=== PATIENT | male | born 1985 | race Caucasian/White ===

== ENCOUNTER 2022-08-19 17:46 | Emergency (ER) | payer OTHER ==
--- OUTSIDE RECORDS SUMMARY | 2022-08-19 17:56 | XMS REPORT | Continuity of Care Document ---
:1985 Author Organization [facility] t Address [address] [place] [address] Care Team Providers Name Role Phone Mark Cullen Primary Care Physician Rakesh Chavira Attending Clinician Unavailable ROSELYN WALLACE Attending Clinician Unavailable APRYL CASAS Attending Clinician Unavailable APRYL CASAS Attending Clinician Unavailable Doctor Unassigned, [place] Attending Clinician Unavailable Kirstie Casas Attending Clinician [phone] [email or web address] Attending Clinician Unavailable Hortencia Attending Clinician Unavailable [email or web address] Attending Clinician Unavailable Shaheen Farr Attending Clinician Quyen Garcia MD Attending Clinician SHAHEEN BUTTS Attending Clinician Unavailable Mary Attending Clinician Unavailable Only, Ang Db Test Attending Clinician Unavailable Provider, Ang [facility] Attending Clinician Unavailable Shannen Weir Attending Clinician SHANNEN JACKSON Attending Clinician Unavailable Lab, Adc Fam Pob I Attending Clinician Unavailable Zeina Nance Attending Clinician ZEINA KNOX Attending Clinician Unavailable Provider, [facility] Attending Clinician Unavailable Mary_PATIENCE Attending Clinician Unavailable Jorje Corbett Attending Clinician Leah Wallace Admitting Clinician Unavailable [email or web address] Admitting Clinician Unavailable Hortencia Admitting Clinician Unavailable [email or web address] Admitting Clinician Unavailable Mary Admitting Clinician Unavailable Brigitte Admitting Clinician Unavailable Jorje Corbett Admitting Clinician Payers Payer Name Policy Type Policy Number Effective Date Expiration Date S ource [facility] [id number] 2021 00:00:00 [facility] [id number] HUMANA () [facility] [id number] 2019 HUMANA 00:00:00 - PRIME () Problems Condition Condition Condition Status Onset Resolution Last Treating Co mments Source Name Details Category Date Date Treatment Clinician Date Lumbar Lumbar Problem Active [facility] spondylosi Spondylosi 6-20 Fa kirt s with s with 00:00: Practic myelopathy Myelopathy 00 e Prediabete Prediabete Problem Active [facility] s s 3-08 Family 00:00: Practic 00 e Depressive Depressive Problem Active [facility] disorder Disorder 1-11 Family 00:00: Practic 00 e Insomnia Insomnia Problem Active 2019-11 [place] 1-12 Family 00:00: Practic 00 e Dyslipidem Dyslipidem Problem Active [facility] illage ia ia 9-22 Family 00:00: Practic 00 e Eczema Eczema Problem Active [facility] 9-22 Family 00:00: Practic 00 e OSMIN, L5-S1 OSMIN, Diagnosis Active 2020-03-18 Memoria L5-S1 4 14:42:00 l Active 00:00: John 03/15/[address] [place] [address] John UNK UNK Diagnosis Active 2020-03-16 Mem oria Active 03-15 10:06:00 l 03/15/2020 00:00: [place] [address] John,[facility] Migraine Migraine Problem Active [place] 4-16 Family 00:00: Practic 00 e Lumbar Lumbar Problem Active 2020-0 Village radiculopa Radiculopa 4-16 Fa kirt thy thy 00:00: Practic 00 e Benign Benign Problem Active 2018-11 [place] essential Essential 0-11 Fami ly hypertensi Hypertensi 00:00: Pr actic on on 00 e ACUTE ACUTE Diagnosis Active 2019-07-30 Mem oria HEADACHE, HEADACHE, 07-20 16:40:00 l FEVER FEVER 00:00: John Active 00 07/20/2019 [facility] HEADACHE HEADACHE Diagnosis Active 2019-07-30 Memoria Active 07-20 16:40:00 l [facility] 00:[facility]: [place] 00 ABNORMAL ABNORMAL Diagnosis Active 2019-07-22 Memoria LEVELS OF LEVELS OF 08:07:00 l OTHER OTHER [place] SERUM SERUM ENZYMES ENZYMES Active [facility] ENCOUNTER Diagnosis Active 2019-07-22 Memoria FOR ENCOUNTER 08:07:00 l SCREENING FOR [place] FOR SCREENING MALIGNANT FOR NE MALIGNANT NE Active [facility] Encounter Problem 2019-07-24 Me moria for Encounter 22:48:41 l general for [place] adult general medical adult examinatio medical n without examinatio abnormal n without findings abnormal findings 07/24/2019 [facility] FEVER, FEVER, Diagnosis Active 2019-07-30 Me moria UNSPECIFIE UNSPECIFIE 16:40:00 l D D Active [facility] ENCNTR FOR ENCNTR Diagnosis Active 2019-07-22 Memoria GENERAL FOR 08:07:00 l ADULT GENERAL [place] MEDICAL ADULT EXAM W/ MEDICAL EXAM W/ Active [facility] No known No known Disease Unive rs active active ity of problems problems [facility] Allergies, Adverse Reactions, Alerts Allergy Allergy Status Severity Reaction(s) Onset Inactive Treating Comm ents Source Name Type Date Date Clinician No Known DA Active [facility] Allergie 3-16 [place] [facility] 00:[facility]: d [facility] NO KNOWN Drug Active Univers ALLERGIE Class ity of S [facility] Social History Social Habit Start Date Stop Date Quantity Comments Source History of Cigar Smoker [place] o f tobacco use [facility] Exposure to 2022-07-16 2022-07-26 Not sure University of SARS-CoV-2 00:00:00 19:26:00 [place] Medical (event) Branch Tobacco use and 2020-10-06 2020-10-06 User of smokeless Un iversity of exposure 00:00:00 00:00:00 tobacco [facility] Tobacco Comment 2020-10-06 2020-10-06 Occasional cigar Uni versity of 00:00:00 00:00:00 [facility] Sex Ass[birth year] Universit y of 00:00:00 00:00:00 [facility] Smoking Status Start Date Stop Date Source Current Some Day Smoker [facility] Light tobacco smoker 2020-10-06 00:00:00 Univers ity of [facility] Social History [facility] Medications Ordered Filled Start Stop Current Ordering Indication Dosage Frequency Signature Comments Components Source Medication Medication Date Date Medication? Clinician (SIG) Name Name cloNIDine 2021- No .2mg 0.2 mg, [facility] ers (CATAPRES) 07-27 Oral, ity of tablet 0.2 01:30: 00:41 ONCE, 1 [place] mg 00 :00 dose, On [facility] 07/26/22 Branch at 2030, CALLIE acetaminoph 2021- No 650mg 650 mg, U nivers en 07-27 Oral, ity of (TYLENOL) 00:42: 00:58 ONCE[place] 1 [place] tablet 650 00 :00 dose, On Medic al mg [facility] 07/26/22 Branch at 1945, CALLIE cloNIDine 2021- No .2mg 0.2 mg, [facility] ers (CATAPRES) 07-27 Oral, ity of tablet 0.2 00:37: 00:39 ONCE, 1 [place] mg 00 :00 dose, On [facility] 07/26/22 Branch at 1945, STAT predniSONE 2021- No 40mg 40 mg, [facility] ers (DELTASONE) 07-27 Oral, ity of tablet 40 00:30: 00:34 ONCE, 1 [place] mg 00 :00 dose, On [facility] 07/26/22 Branch at 1930, CALLIE hydroCHLORO 2021- No 25mg Take 25 mg Univers thiazide 25 07-26 by mouth ity of mg tablet 20:12: 00:00 daily. [place] 29 :00 [facility] lisinopriL 2021- No 20mg Take 20 mg Univers 20 mg 9-08 09-08 by mouth ity of tablet 20:11: 00:00 daily. [place] 56 :00 Medical Branch cloNIDine 2021-0 Yes [id number] .2mg Take 1 Un slade 0.2 mg 9-08 tablet by ity of tablet 00:00: mouth in [place] 00 the Medical morning Branch and 1 tablet in the evening. predniSONE 2021-0 2021- Yes [id number] Take 4 Univers 10 mg 9-08 09-20 tablets by ity of tablet 00:00: 04:59 mouth [place] 00 :00 daily for Medical 5 days, Branch THEN 2 tablets daily for 3 days, THEN 1 tablet daily for 3 days. sertraline sertraline No sertraline [facility] 100 mg 100 mg 6-20 100 mg Family tablet tablet 00:00: tablet Practic 00 e triamcinolo Yes [id number] Apply to [facility] 4-19 area(s) 2 ity of acetonide 00:00: (two) [place] 0.1 % 00 times Medical ointment daily. Branch methylPREDN 0 Yes Take by [facility] 4 4-19 mouth ity of mg tablets 00:00: SEE-INSTRU [place] 00 CTIONS. Medical follow Branch package directions triamcinolo 0 Yes Apply to [facility] 4-19 area(s) 2 ity of acetonide 00:00: (two) [place] 0.1 % 00 times Medical ointment daily. Branch methylPREDN 0 Yes Take by [facility] 4 4-19 mouth ity of mg tablets 00:00: SEE-INSTRU [place] 00 CTIONS. Medical follow Branch package directions triamcinolo 0 2021- No [id number] Apply to [facility] 4-19 -08 area(s) 2 ity of acetonide 00:00: 00:00 (two) [place] 0.1 % 00 :00 times Medical ointment daily. Branch methylPREDN 2021-0 2021- No [id number] Take by [facility] 4 4-19 -08 mouth ity of mg tablets 00:00: 00:00 SEE-INSTRU [place] 00 :00 CTIONS. Medical follow Branch package directions dexamethaso 2020-11- No [id number] 8mg [facility] ne 0-25 10-25 ity of (DECADRON 02:45: 01:40 [place] PHOSPHATE) 00 :00 Medical injection 8 Branch mg dexamethaso 2020-11- No 8mg 8 mg, Univers ne 0-25 10-25 Intramuscu ity of (DECADRON 02:45: 01:40 lar, ONCE, [place] PHOSPHATE) 00 :00 1 dose, On Med ical injection 8 Sun Branch mg 09/10/21 at 2145, Routine clotrimazol 2020-11- No Apply to U nivers e-betametha 0-24 10-24 area(s) 2 it y of sone cream 19:49: 00:00 (two) [place] 52 :00 times Medical daily. Branch mupirocin 2 2020-11 Apply to U nivers % ointment 0-24 10-24 area(s) 3 ity of 19:49: 00:00 (three) [place] 37 :00 times Medical daily. Branch triamcinolo 2020-11 Apply to U nivers ne 0-24 10-24 area(s) 2 ity of acetonide 19:49: 00:00 (two) [place] 0.1 % cream 31 :00 times Medical daily. Branch methylPREDN 2020-11 Yes Take by Univers ISolone 0-24 mouth ity of (MEDROL, 00:00: SEE-INSTRU [place] CHI,) 4 mg 00 CTIONS. Medica l tablets follow Branch package directions triamcinolo 2020-11 Yes Apply to Univers ne 0-24 area(s) 2 ity of acetonide 00:00: (two) [place] 0.1 % 00 times Medical ointment daily. Branch methylPREDN 2020-11 Yes Take by Univers ISolone 0-24 mouth ity of (MEDROL, 00:00: SEE-INSTRU [place] CHI,) 4 mg 00 CTIONS. Medica l tablets follow Branch package directions triamcinolo 2020-11 Yes Apply to Univers ne 0-24 area(s) 2 ity of acetonide 00:00: (two) [place] 0.1 % 00 times Medical ointment daily. Branch methylPREDN 2020-11 Yes [id number] Take by Univers ISolone 0-24 mouth ity of (MEDROL, 00:00: SEE-INSTRU [place] CHI,) 4 mg 00 CTIONS. Medica l tablets follow Branch package directions triamcinolo 2020-11 Yes Apply to Univers ne 0-24 area(s) 2 ity of acetonide 00:00: (two) [place] 0.1 % 00 times Medical ointment daily. Branch methylPREDN 2020-11- No [id number] Take by Univers ISolone 0-24 04-19 mouth ity of (MEDROL, 00:00: 00:00 [place]-INSTRU [place] CHI,) 4 mg 00 :00 CTIONS. Medica l tablets follow Branch package directions triamcinolo 2020-11- No [id number] Apply to [facility] ne 0-24 04-19 area(s) 2 ity of acetonide 00:00: 00:00 (two) [place] 0.1 % 00 :00 times Medical ointment daily. Branch amitriptyli 2019-11 Yes 25mg Take 25 mg Univers ne 25 mg 1-19 by mouth ity of tablet 20:08: at [place] [address] bedtime. Medical Branch mupirocin 2 2019-11 Yes Apply to Un slade % ointment 1-19 area(s) 3 ity of 20:08: (three) [place] 08 times Medical daily. Branch hydroCHLORO 2019-11 Yes 25mg Take 25 mg Univers thiazide 25 1-19 by mouth ity of mg tablet 20:08: daily. [place] [address] Medical Branch clotrimazol 2019-11 Yes Apply to Un sl[place] e-betametha 1-19 area(s) 2 ity of sone cream 20:08: (two) [place] 08 times Medical daily. Branch SERTraline 2019-11 Yes 50mg Take 50 mg U nivers 50 mg 1-19 by mouth ity of tablet 20:08: daily. [place] [address] Medical Branch ibuprofen 2019- Yes 600mg Take 600 Uni vers 600 mg 1-19 mg by ity of tablet 20:08: mouth [place] 08 every 6 Medical (six) Branch hours as needed. triamcinolo 2019-11 Yes Apply to Un [place] ne 1-19 area(s) 2 ity of acetonide 20:08: (two) [place] 0.1 % cream 08 times Medical daily. Branch lisinopriL 2019-11 Yes 20mg Take 20 mg U nivers 20 mg 1-19 by mouth ity of tablet 20:08: daily. [place] [address] Medical Branch amitriptyli 2019-11 Yes 25mg Take 25 mg Univers ne 25 mg 1-19 by mouth ity of tablet 20:08: at [place] 08 bedtime. Medical Branch mupirocin 2 2019-11 Yes Apply to Un slade % ointment 1-19 area(s) 3 ity of 20:08: (three) [place] 08 times Medical daily. Branch hydroCHLORO 2019- Yes 25mg Take 25 mg Univers thiazide 25 1-19 by mouth ity of mg tablet 20:08: daily. [place] [address] Medical Branch clotrimazol 2019-11 Yes Apply to Un [place] e-betametha 1-19 area(s) 2 ity of sone cream 20:08: (two) [place] 08 times Medical daily. Branch SERTraline 2019-11 Yes 50mg Take 50 mg U nivers 50 mg 1-19 by mouth ity of tablet 20:08: daily. [place] [address] Medical Branch ibuprofen 2019- Yes 600mg Take 600 Uni vers 600 mg 1-19 mg by ity of tablet 20:08: mouth [place] [address] every 6 Medical (six) Branch hours as needed. triamcinolo 2019-11 Yes Apply to Un sl[place] ne 1-19 area(s) 2 ity of acetonide 20:08: (two) [place] 0.1 % cream 08 times Medical daily. Branch lisinopriL 2019-11 Yes 20mg Take 20 mg U nivers 20 mg 1-19 by mouth ity of tablet 20:08: daily. [place] [address] Medical Branch amitriptyli 2019-11 Yes 25mg Take 25 mg Univers ne 25 mg 1-19 by mouth ity of tablet 20:08: at [place] 08 bedtime. Medical Branch mupirocin 2 2019-11 Yes Apply to Un slade % ointment 1-19 area(s) 3 ity of 20:08: (three) [place] 08 times Medical daily. Branch hydroCHLORO 2019- Yes 25mg Take 25 mg Univers thiazide 25 1-19 by mouth ity of mg tablet 20:08: daily. [place] [address] Medical Branch clotrimazol 2019-11 Yes Apply to Un [place] e-betametha 1-19 area(s) 2 ity of sone cream 20:08: (two) [place] 08 times Medical daily. Branch SERTraline 2019-11 Yes 50mg Take 50 mg U nivers 50 mg 1-19 by mouth ity of tablet 20:08: daily. [place] [address] Medical Branch ibuprofen 2019- Yes 600mg Take 600 Uni vers 600 mg 1-19 mg by ity of tablet 20:08: mouth [place] 08 every 6 Medical (six) Branch hours as needed. triamcinolo 2019-11 Yes Apply to Un sl[place] ne 1-19 area(s) 2 ity of acetonide 20:08: (two) [place] 0.1 % cream 08 times Medical daily. Branch lisinopriL 2019-11 Yes 20mg Take 20 mg U nivers 20 mg 1-19 by mouth ity of tablet 20:08: daily. [place] [address] Medical Branch amitriptyli 2019- Yes 25mg Take 25 mg Univers ne 25 mg 1-19 by mouth ity of tablet 14:08: at [place] [address] bedtime. Medical Branch hydroCHLORO 2019- Yes 25mg Take 25 mg Univers thiazide 25 1-19 by mouth ity of mg tablet 14:08: daily. [place] [address] Medical Branch SERTraline 2019-11 Yes 50mg Take 50 mg U nivers 50 mg 1-19 by mouth ity of tablet 14:08: daily. [place] [address] Medical Branch ibuprofen 2019- Yes 600mg Take 600 Uni vers 600 mg 1-19 mg by ity of tablet 14:08: mouth [place] [address] every 6 Medical (six) Branch hours as needed. lisinopriL 2019-11 Yes 20mg Take 20 mg U nivers 20 mg 1-19 by mouth ity of tablet 14:08: daily. [place] [address] Medical Branch amitriptyli 2019- Yes 25mg Take 25 mg Univers ne 25 mg 1-19 by mouth ity of tablet 14:08: at [place] [address] bedtime. Medical Branch hydroCHLORO 2020- Yes 25mg Take 25 mg Univers thiazide 25 1-19 by mouth ity of mg tablet 14:08: daily. [place] [address] Medical Branch SERTraline 2019- Yes 50mg Take 50 mg U nivers 50 mg 1-19 by mouth ity of tablet 14:08: daily. [place] [address] Medical Branch ibuprofen 2019- Yes 600mg Take 600 Uni vers 600 mg 1-19 mg by ity of tablet 14:08: mouth [place] 08 every 6 Medical (six) Branch hours as needed. lisinopriL 2020- Yes 20mg Take 20 mg U nivers 20 mg 1-19 by mouth ity of tablet 14:08: daily. [place] [address] Medical Branch amitriptyli 2020- Yes 25mg Take 25 mg Univers ne 25 mg 1-19 by mouth ity of tablet 14:08: at [place] 08 bedtime. Medical Branch hydroCHLORO 2020- Yes 25mg Take 25 mg Univers thiazide 25 1-19 by mouth ity of mg tablet 14:08: daily. [place] [address] Medical Branch SERTraline 2020- Yes 50mg Take 50 mg U nivers 50 mg 1-19 by mouth ity of tablet 14:08: daily. [place] [address] Medical Branch ibuprofen 2020- Yes 600mg Take 600 Uni vers 600 mg 1-19 mg by ity of tablet 14:08: mouth [place] 08 every 6 Medical (six) Branch hours as needed. lisinopriL 2019- Yes 20mg Take 20 mg U nivers 20 mg 1-19 by mouth ity of tablet 14:08: daily. [place] [address] Medical Branch amitriptyli 2020- Yes 25mg Take 25 mg Univers ne 25 mg 1-19 by mouth ity of tablet 14:08: at [place] [address] bedtime. Medical Branch hydroCHLORO 2020-1 Yes 25mg Take 25 mg Univers thiazide 25 1-19 by mouth ity of mg tablet 14:08: daily. [place] [address] Medical Branch SERTraline 2019- Yes 50mg Take 50 mg U nivers 50 mg 1-19 by mouth ity of tablet 14:08: daily. [place] [address] Medical Branch ibuprofen 2020-1 Yes 600mg Take 600 Uni vers 600 mg 1-19 mg by ity of tablet 14:08: mouth [place] 08 every 6 Medical (six) Branch hours as needed. lisinopriL 2020- Yes 20mg Take 20 mg U nivers 20 mg 1-19 by mouth ity of tablet 14:08: daily. [place] [address] Medical Branch amitriptyli 2020- Yes 25mg Take 25 mg Univers ne 25 mg 1-19 by mouth ity of tablet 14:08: at [place] 08 bedtime. Medical Branch SERTraline 2020- Yes 50mg Take 50 mg U nivers 50 mg 1-19 by mouth ity of tablet 14:08: daily. [place] [address] Medical Branch ibuprofen 2019- Yes 600mg Take 600 Uni vers 600 mg 1-19 mg by ity of tablet 14:08: mouth [place] 08 every 6 Medical (six) Branch hours as needed. amitriptyli 2019-11 Yes 25mg Take 25 mg Univers ne 25 mg 1-19 by mouth ity of tablet 14:08: at [place] 08 bedtime. Medical Branch hydroCHLORO 2019-11 Yes 25mg Take 25 mg Univers thiazide 25 1-19 by mouth ity of mg tablet 14:08: daily. [place] [address] Medical Branch SERTraline 2019- Yes 50mg Take 50 mg U nivers 50 mg 1-19 by mouth ity of tablet 14:08: daily. [place] [address] Medical Branch ibuprofen 2019-11 Yes 600mg Take 600 Uni vers 600 mg 1-19 mg by ity of tablet 14:08: mouth [place] 08 every 6 Medical (six) Branch hours as needed. lisinopriL 2019-11 Yes 20mg Take 20 mg U nivers 20 mg 1-19 by mouth ity of tablet 14:08: daily. [place] [address] Medical Branch benzonatate 2019-11 Yes [id number] 100mg Take 1 Univers (TESSALON 1-19 capsule by ity of PERLES) 100 00:00: mouth 3 [place] mg capsule 00 (three) Medica l times [place] daily. loratadine 2019-11 Yes [id number] 10mg Take 1 U nivers 10 mg 1-19 tablet by ity of tablet 00:00: mouth [place] 00 daily. Medical Branch fluticasone 2019-11 Yes [id number] 2{spray Use 2 Univers propionate 1-19 } Sprays in ity of 50 00:00: each [place] mcg/actuati 00 nostril Medic al on nasal daily. Branch spray benzonatate 2019-11 Yes [id number] 100mg Take 1 Univers (TESSALON 1-19 capsule by ity of PERLES) 100 00:00: mouth 3 [place] mg capsule 00 (three) Medica l times [place] daily. loratadine 2019-11 Yes [id number] 10mg Take 1 U nivers 10 mg 1-19 tablet by ity of tablet 00:00: mouth [place] 00 daily. Medical Branch fluticasone 2019-11 Yes [id number] 2{spray Use 2 Univers propionate 1-19 } Sprays in ity of 50 00:00: each [place] mcg/actuati 00 nostril Medic al on nasal daily. [place] spray benzonatate 2019-11 Yes [id number] 100mg Take 1 Univers (TESSALON 1-19 capsule by ity of PERLES) 100 00:00: mouth 3 [place] mg capsule 00 (three) Medica l times Branch daily. loratadine 2019-11 Yes [id number] 10mg Take 1 U nivers 10 mg 1-19 tablet by ity of tablet 00:00: mouth [place] 00 daily. [facility] fluticasone 2019-11 Yes [id number] 2{spray Use 2 Univers propionate 1-19 } Sprays in ity of 50 00:00: each [place] mcg/actuati 00 nostril Medic al on nasal daily. [place] spray benzonatate 2019-11- No [id number] 100mg Take 1 Univers (TESSALON 1-19 10-24 capsule by ity of JUAN) 100 00:00: 00:00 mouth 3 [place] mg capsule 00 :00 (three) Medica l times [place] daily. loratadine 2019-11- No [id number] 10mg Take 1 Univers 10 mg 1-19 10-24 tablet by ity of tablet 00:00: 00:00 mouth [place] 00 :00 daily. [facility] fluticasone 2019-11- No [id number] 2{spray Use 2 Univers propionate 1-19 10-24 } Sprays in ity of 50 00:00: 00:00 each [place] mcg/actuati 00 :00 nostril Medic al on nasal daily. [place] spray Acetaminoph Yes 1 tab, PO, Memoria en 325 MG / 9-04 Q4H, PRN l butalbital 21:51: Headache Her ramírez 50 MG / 00 1-5, X 3 Caffeine 40 day, # 12 MG Oral tab, 0 Tablet Refill(s), Pharmacy: [place] [id number] Acetaminoph Yes 1 tab, PO, Memoria en 325 MG / 9-04 Q4H, PRN l butalbital 21:51: Headache Her ramírez 50 MG / 00 1-5, X 3 Caffeine 40 day, # 12 MG Oral tab, 0 Tablet Refill(s), Pharmacy: [place] [id number] Ibuprofen No 625, PO, Trae matti 9-04 Q8H, PRN l 20:49: Pain Score [place] 00 4-6, 0 Refill(s) Ibuprofen 0 No 625, PO, [place] 07-22 Q8H, PRN l 20:49: Pain Score [place] 00 4-6, 0 Refill(s) APAP/butalb No Notes: [place] ital/caffei 07-22 (acetamino l ne 19:27: phen-butal [place] 00 bital-caff eine 325-50-40m g) Do not exceed 4 gm/day of acetaminop hen. (Same as: [place], Fioricet) APAP/butalb No Notes: [place] ital/caffei 07-22 (acetamino l ne 19:27: phen-butal [place] 00 bital-caff eine 325-50-40m g) Do not exceed 4 gm/day of acetaminop hen. (Same as: [place], Fioricet) Aspirin 325 0 No 1 cap, Trae matti MG / 07-22 Route: PO, l butalbital 19:07: Drug Form: H ermann 50 MG / 00 CAP, Caffeine 40 Dosing MG Oral Weight Capsule 120.17, [Fiorinal] kg, Q4H, PRN Headache 1-5, NOW, Start date: 07/22/19 14:07:00 CDT, Duration: 30 day, Stop date: 08/21/19 14:06:00 CDT Aspirin 325 0 No 1 cap, Trae matti MG / 07-22 Route: PO, l butalbital 19:07: Drug Form: H ermann 50 MG / 00 CAP, Caffeine 40 Dosing MG Oral Weight Capsule 120.17, [Fiorinal] kg, Q4H, PRN Headache 1-5, NOW, Start date: 07/22/19 14:07:00 CDT, Duration: 30 day, Stop date: 08/21/19 14:06:00 CDT Dilaudid 0 No Notes: Memoria 07-22 Same as: l 14:30: Dilaudid [place] 00 Dilaudid No Notes: Memoria 07-22 Same as: l 14:30: Dilaudid [place] vancomycin 0 No 2001 mg: Me moria + Sodium 9-04 infuse l Chloride 09:00: over 2.5 Kerri nn 0.9% IV 250 00 hours For mL adult patients only: Round to nearest 250 mg per Medical Staff approval MEDICATION WASTE Product Size: 1000 mg Product Wasted: ___ mg vancomycin 2019-0 No 2000 mg: Me moria + Sodium 07-22 infuse l Chloride 09:00: over 2.5 Kerri nn 0.9% IV 250 00 hours For mL adult patients only: Round to nearest 250 mg per Medical Staff approval MEDICATION WASTE Product Size: 1000 mg Product Wasted: ___ mg vancomycin 2019- No 2000 mg: Me moria 07-21 infuse l 23:00: over 2.5 [place] 00 hours For adult patients only: Round to nearest 250 mg per Medical Staff approval MEDICATION WASTE Product Size: 1000 mg Product Wasted: ___ mg vancomycin 2018- No 2000 mg: Me moria 07-21 infuse l 23:00: over 2.5 John 00 hours For adult patients only: Round to nearest 250 mg per Medical Staff approval MEDICATION WASTE Product Size: 1000 mg Product Wasted: ___ mg ketOROLAC 2019-0 No 4 days Memor ia 30 mg/mL 07-21 l injectable 14:57: MEDICATION H ermann solution 00 WASTE Product Size: 30 mg Product Wasted: ___ mg Dexamethaso 2018- No Notes: Trae matti ne 07-21 Concentrat l 14:57: ion: [place] 00 4mg/ml Dilaudid No Notes: Memoria 07-21 Same as: l 14:57: Dilaudid [place] 00 Phenergan 2018- No Notes: Do Mem oria 07-21 not give l 14:57: IV push. [place] 00 (Same as: Phenergan) ketOROLAC 2019-0 No 4 days Memor ia 30 mg/mL 07-21 l injectable 14:57: MEDICATION H ermann solution 00 WASTE Product Size: 30 mg Product Wasted: ___ mg Dexamethaso No Notes: Trae matti ne 07-21 Concentrat l 14:57: ion: [place] 00 4mg/ml Dilaudid No Notes: Memoria 07-21 Same as: l 14:57: Dilaudid Phenergan No Notes: Do Mem oria 07-21 not give l 14:57: IV push. (Same as: Phenergan) Saline No Notes: Memoria Flush 0.9% 07-21 (Same as: l 14:00: BD [place] 00 Posiflush) Saline No Notes: Memoria Flush 0.9% 07-21 (Same as: l 14:00: BD [place] Posiflush) Lactated No 1,000 mL, Trae matti Ringers IV 07-21 Rate: 125 l 1,000 mL 12:55: ml/hr, Infuse over: 8 hr, Route: IV, Dosing Weight 120.17 kg, Total Volume: 1,000, Start date: 07/21/19 7:55:00 CDT, Duration: 30 day, Stop date: 08/20/19 7:54:00 CDT, 2.48, m2, 0 Lactated No 1,000 mL, Trae matti [place] IV 07-21 Rate: 125 l 1,000 mL 12:55: ml/hr, Infuse over: 8 hr, Route: IV, Dosing Weight 120.17 kg, Total Volume: 1,000, Start date: 07/21/19 7:55:00 CDT, Duration: 30 day, Stop date: 08/20/19 7:54:00 CDT, 2.48, m2, 0 Ceftriaxone No Notes: Trae matti 07-21 (Same As: l 11:00: Rocephin). MEDICATION WASTE Product Size: 2000 mg Product Wasted: ___ mg Vancomycin No 2001 mg: Me moria 07-21 infuse l 11:00: over 2.5 hours For adult patients only: Round to nearest 250 mg per Medical Staff approval MEDICATION WASTE Product Size: 1000 mg Product Wasted: ___ mg Acyclovir No Notes: Memori a 07-21 (Same as: l 11:00: Zovirax) For adult patients only: Round to nearest 50 mg per Medical Staff approval MEDICATION WASTE Product Size: 500 mg Product Wasted: ___ mg Ceftriaxone 2018-0 No Notes: Trae matti 07-21 (Same As: l 11:00: Rocephin). John MEDICATION WASTE Product Size: 2000 mg Product Wasted: ___ mg Vancomycin 2018-0 No 2001 mg: Me moria 07-21 infuse l 11:00: over 2.5 [place] 00 hours For adult patients only: Round to nearest 250 mg per Medical Staff approval MEDICATION WASTE Product Size: 1000 mg Product Wasted: ___ mg Acyclovir 2018- No Notes: Memori a 07-21 (Same as: l 11:00: Zovirax) John 00 For adult patients only: Round to nearest 50 mg per Medical Staff approval MEDICATION WASTE Product Size: 500 mg Product Wasted: ___ mg Saline No Notes: Memoria Flush 0.9% 07-21 (Same as: l 10:59: BD John 00 Posiflush) Saline No Notes: Memoria Flush 0.9% 07-21 (Same as: l 10:59: BD [place] 00 Posiflush) Lidocaine Yes Notes: Memori a Hydrochlori 07-21 Preservati l de 10 MG/ML 06:57: ve free. He rmann Injectable 00 (Same as: Solution Xylocaine MPF) Lidocaine Yes Notes: Memori a Hydrochlori 07-21 Preservati l de 10 MG/ML 06:57: ve free. He rmann Injectable 00 (Same as: Solution Xylocaine MPF) Vancomycin 0 No 2001 mg: Me moria 07-21 infuse l 04:47: over 2.5 [place] 00 hours For adult patients only: Round to nearest 250 mg per Medical Staff approval MEDICATION WASTE Product Size: 1000 mg Product Wasted: ___ mg cefepime 2018-0 No Notes: Memoria 07-21 (Same as: l 04:47: Maxipime) John 00 MEDICATION WASTE Product Size: 2000 mg Product Wasted: ___ mg Vancomycin 2019-0 No 2001 mg: Me moria 07-21 infuse l 04:47: over 2.5 [place] 00 hours For adult patients only: Round to nearest 250 mg per Medical Staff approval MEDICATION WASTE Product Size: 1000 mg Product Wasted: ___ mg cefepime No Notes: Memoria 07-21 (Same as: l 04:47: Maxipime) John 00 MEDICATION WASTE Product Size: 2000 mg Product Wasted: ___ mg Dexamethaso No 10 mg, 2.5 Memoria ne 9-03 mL, Route: l 04:46: IVP, Drug [place] form: INJ, ONCE, Dosing Weight 119, kg, Priority: STAT, Start date: 07/20/19 23:46:00 CDT, Stop date: 07/20/19 23:46:00 CDT, 0 Reglan No Notes: Memoria 07-21 (Same as: l 04:46: Reglan) Benadryl No Notes: Memoria 07-21 (Same as: l 04:46: Benadryl) Dexamethaso No 10 mg, 2.5 Memoria ne 9-03 mL, Route: l 04:46: IVP, Drug form: INJ, ONCE, Dosing Weight 119, kg, Priority: STAT, Start date: 07/20/19 23:46:00 CDT, Stop date: 07/20/19 23:46:00 CDT, 0 Reglan No Notes: Memoria 07-21 (Same as: l 04:46: Reglan) John Benadryl No Notes: Memoria 07-21 (Same as: l 04:46: Benadryl) Ojhn Sodium No 1,000 mL, Memori a Chloride 07-21 1000 l 0.9% 02:27: ml/hr, [place] (Bolus) IV 00 Infuse Over: 1 hr, Route: IV, 1,000, Drug form: INJ, ONCE, Priority: STAT, Dosing Weight 119 kg, Start date: 07/20/19 21:27:00 CDT, Stop date: 07/20/19 21:27:00 CDT, 0 Sodium 2019-0 No 1,000 mL, Memori a Chloride 07-21 1000 l 0.9% 02:27: ml/hr, John (Bolus) IV 00 Infuse Over: 1 hr, Route: IV, 1,000, Drug form: INJ, ONCE, Priority: STAT, Dosing Weight 119 kg, Start date: 07/20/19 21:27:00 CDT, Stop date: 07/20/19 21:27:00 CDT, 0 Tylenol 2019-0 No 1,000 mg, Memor ia 07-21 Route: PO, l 02:11: ONCE, Dosing Weight 119, kg, Start date: 07/20/19 21:11:00 CDT, Stop date: 07/20/19 21:11:00 CDT Tylenol 2019-0 No 1,000 mg, Memor ia 07-21 Route: PO, l 02:11: ONCE, Dosing Weight 119, kg, Start date: 07/20/19 21:11:00 CDT, Stop date: 07/20/19 21:11:00 CDT amitriptyli amitriptyli No amitriptyl [facility] ne 25 mg ne 25 mg ine 25 mg Fa kirt tablet Take tablet Take tablet Practic 1 tablet as 1 tablet as Take 1 e needed by needed by tablet as oral route oral route needed by at bedtime. at bedtime. oral route at bedtime. atenolol 50 atenolol 50 No atenolol [facility] mg tablet 1 mg tablet 1 50 mg Family tab qd tab qd tablet 1 Practic tab qd e ergocalcife ergocalcife No ergocalcif [facility] ashley ramirez ashlie Family (vitamin (vitamin (vitamin Pra ctic D2) 1,250 D2) 1,250 D2) 1,250 e mcg (50,000 mcg (50,000 mcg unit) unit) (50,000 capsule 1 capsule 1 unit) PO WEEKLY PO WEEKLY capsule 1 PO WEEKLY irbesartan irbesartan No irbesartan [facility] 300 300 300 Family mg-hydrochl mg-hydrochl mg-hydroch Practic orothiazide orothiazide lorothiazi e 12.5 mg 12.5 mg de 12.5 mg tablet Take tablet Take tablet 1 tablet 1 tablet Take 1 every day every day tablet by oral by oral every day route. route. by oral route. Immunizations Ordered Filled Immunization Date Status Comments [facility] e Immunization Name Name SARS-COV-2 COVID-19 2021-05-12 Completed Unive rsity of MODERNA VACCINE 00:00:00 [facility] ical Branch SARS-COV-2 COVID-19 2021-05-12 Completed Unive rsity of MODERNA VACCINE 00:00:00 [facility] ical Branch SARS-COV-2 COVID-19 2021-05-12 Completed Unive rsity of MODERNA 12+ YRS 00:00:00 [facility] ical VACCINE Branch SARS-COV-2 COVID-19 2021-05-12 Completed Unive rsity of MODERNA 12+ YRS 00:00:00 [facility] ical VACCINE Branch COVID-19, mRNA, COVID-19, mRNA, 2021-05-12 Completed [facility] Family LNP-S, PF, 100 LNP-S, PF, 100 00:00:00 Practi ce mcg/0.5 mL dose mcg/0.5 mL dose (Moderna) (Moderna) SARS-COV-2 COVID-19 2021-04-14 Completed Unive rsity of MODERNA VACCINE 00:00:00 [facility] ical Branch SARS-COV-2 COVID-19 2021-04-14 Completed Unive rsity of MODERNA VACCINE 00:00:00 [facility] ical Branch SARS-COV-2 COVID-19 2021-04-14 Completed Unive rsity of MODERNA 12+ YRS 00:00:00 [facility] ical VACCINE Branch SARS-COV-2 COVID-19 2021-04-14 Completed Unive rsity of MODERNA 12+ YRS 00:00:00 [facility] ical VACCINE Branch COVID-19, mRNA, COVID-19, mRNA, 2021-04-11 Completed Vill age Family LNP-S, PF, 100 LNP-S, PF, 100 00:00:00 Practi ce mcg/0.5 mL dose mcg/0.5 mL dose (Moderna) (Moderna) SARS-COV-2 COVID-19 2021-03-07 Completed Unive rsity of MODERNA VACCINE 00:00:00 [facility] ical Branch SARS-COV-2 COVID-19 2021-03-07 Completed Unive rsity of MODERNA VACCINE 00:00:00 [facility] ica Branch SARS-COV-2 COVID-19 2021-03-07 Completed Unive rsity of MODERNA 12+ YRS 00:00:00 [place] [facility] VACCINE [facility] SARS-COV-2 COVID-19 2021-03-07 Completed Unive rsity of MODERNA 12+ YRS 00:00:00 [facility] ica VACCINE Branch Influenza Virus 2020-08-18 Completed Universit y of Vaccine Quad IM 00:00:00 [place] [facility] Multi-dose 6+ MO Branch Influenza Virus 2020-08-18 Completed Universit y of Vaccine Quad IM 00:00:00 [place] [facility] Multi-dose 6+ MO Branch Influenza Virus 2020-08-18 Completed Universit y of Vaccine Quad IM 00:00:00 [place] [facility] Multi-dose 6+ MO Branch Influenza Virus 2020-08-18 Completed Universit y of Vaccine Quad IM 00:00:00 [place] [facility] Multi-dose 6+ MO Branch Influenza Virus 2020-08-18 Completed Universit y of Vaccine Quad IM 00:00:00 [place] [facility] Multi-dose 6+ MO Branch Influenza Virus 2020-08-18 Completed Universit y of Vaccine Quad IM 00:00:00 [place] [facility] Multi-dose 6+ MO Branch Influenza Virus 2020-08-18 Completed Universit y of Vaccine Quad IM 00:00:00 [place] [facility] Multi-dose 6+ MO Branch Influenza Virus 2020-08-18 Completed Universit y of Vaccine Quad IM 00:00:00 [place] [facility] Multi-dose 6+ MO Branch Influenza Virus 2020-08-18 Completed Universit y of Vaccine Quad IM 00:00:00 [facility] ical Multi-dose 6+ MO Branch influenza, influenza, 2020-08-18 Completed [place] injectable, injectable, 00:00:00 Practice quadrivalent quadrivalent TDAP 2016-11-18 Completed University of 00:00:00 [facility] TDAP 2016-11-18 Completed University of 00:00:00 [facility] TDAP 2016-11-18 Completed University of 00:00:00 [facility] TDAP 2016-11-18 Completed University of 00:00:00 [facility] TDAP 2016-11-18 Completed University of 00:00:00 [facility] TDAP 2016-11-18 Completed University of 00:00:00 [facility] TDAP 2016-11-18 Completed University of 00:00:00 [facility] TDAP 2016-11-18 Completed University 00:00:00 [facility] TDAP 2016-11-18 Completed [facility] 00:00:00 [facility] Tdap Tdap 2016-11-18 Completed [place] 00:00:00 Practice Vital Signs Vital Name Observation Time Observation Value Comments Source Systolic blood 2022-07-27 01:27:00 155 mm[Hg] Univer sity of pressure [facility] Diastolic blood 2022-07-27 01:27:00 96 mm[Hg] Unive rsity of pressure [facility] Heart rate 2022-07-27 01:27:00 89 /min Universi ty of [facility] Respiratory rate 2022-07-27 01:27:00 18 /min Univ [facility] Oxygen saturation in 2022-07-27 01:27:00 97 /min [facility] Arterial blood by [facility] Pulse oximetry Branch Body temperature 2022-07-27 00:28:00 37.56 [facility] [facility] height 2022-07-27 00:28:00 180.3 cm Universi ty [facility] Body weight 2022-07-27 00:28:00 [facility] 2022-07-27 00:28:00 32.08 kg/m2 [facility] Height 2022-05-07 00:00:00 71.5 [in_i] [place] Practice BMI (Body Mass 2022-05-07 00:00:00 40.4 kg/m2 [facility]) Practice Body Weight 2022-05-07 00:00:00 294 [lb_av] [place] [facility] Systolic blood 2022-03-06 17:03:00 161 mm[Hg] Univer sity of pressure [facility] Diastolic blood 2022-03-06 17:03:00 101 mm[Hg] Unive rsity of pressure [facility] Heart rate 2022-03-06 17:00:00 54 /min Universi ty [facility] Body temperature 2022-03-06 17:00:00 36.44 Saloni Univ ersity of [facility] Respiratory rate 2022-03-06 17:00:00 18 /min Univ ersity of [facility] Body height 2022-03-06 17:00:00 180.3 cm Universi ty [facility] Body weight 2022-03-06 17:00:00 133.811 kg Universi [facility] BMI 2022-03-06 17:00:00 41.14 kg/m2 [facility] Oxygen saturation in 2022-03-06 17:00:00 97 /min University Arterial blood by [facility] Pulse oximetry Branch Height 2022-02-19 00:00:00 71.5 [in_i] [facility] BMI (Body Mass 2022-02-19 00:00:00 40.6 kg/m2 [facility] Body Weight 2022-02-19 00:00:00 295 [lb_av] [facility] BP Diastolic 2022-01-10 00:00:00 82 mm[Hg] [facility] Height 2022-01-10 00:00:00 71.5 [in_i] [facility] BMI (Body Mass 2022-01-10 00:00:00 41.1 kg/m2 [facility] BP Systolic 2022-01-10 00:00:00 138 mm[Hg] [facility] Body Weight 2022-01-10 00:00:00 299 [lb_av] [facility] BP Diastolic 2022-01-04 00:00:00 80 mm[Hg] [facility] Height 2022-01-04 00:00:00 71.5 [in_i] [facility] BMI (Body Mass 2022-01-04 00:00:00 39.3 kg/m2 [facility] BP Systolic 2022-01-04 00:00:00 130 mm[Hg] [facility] Body Weight 2022-01-04 00:00:00 286 [lb_av] [facility] BP Diastolic 2021-09-11 00:00:00 90 mm[Hg] [facility] Height 2021-09-11 00:00:00 71.5 [in_i] [facility] BMI (Body Mass 2021-09-11 00:00:00 39.7 kg/m2 [facility] BP Systolic 2021-09-11 00:00:00 138 mm[Hg] [facility] Body Weight 2021-09-11 00:00:00 288.8 [lb_av] [facility] Systolic blood 2021-09-11 00:40:00 165 mm[Hg] Univer sity of pressure [facility] Diastolic blood 2021-09-11 00:40:00 109 mm[Hg] Unive rsity of [facility] Body weight 2021-09-11 00:39:00 132.405 kg Universi ty [facility] BMI 2021-09-11 00:39:00 40.71 kg/m2 Universi [facility] Oxygen saturation in 2021-09-11 00:39:00 98 /min [facility] Arterial blood by [facility] Pulse oximetry Branch Heart rate 2021-09-11 00:39:00 88 /min [facility] Respiratory rate 2021-09-11 00:39:00 20 /min [facility] 2021-09-11 00:39:00 180.3 [facility] Height 2021-04-22 00:00:00 71.5 [in_i] [facility] Height 2021-02-20 00:00:00 71.5 [in_i] [facility] BMI (Body Mass 2021-02-20 00:00:00 40.3 kg/m2 [facility] Body Weight 2021-02-20 00:00:00 293 [lb_av] [facility] BP Diastolic 2020-11-28 00:00:00 115 mm[Hg] [facility] Height 2020-11-28 00:00:00 71.5 [in_i] [facility] BMI (Body Mass 2020-11-28 00:00:00 40.3 kg/m2 [facility] BP Systolic 2020-11-28 00:00:00 175 mm[Hg] [facility] Body Weight 2020-11-28 00:00:00 293 [lb_av] [facility] Height 2020-11-14 00:00:00 71.5 [in_i] [facility] BMI (Body Mass 2020-11-14 00:00:00 38.8 kg/m2 [facility] Body Weight 2020-11-14 00:00:00 282 [lb_av] [facility] Height 2020-10-11 00:00:00 71.5 [in_i] [facility] BMI (Body Mass 2020-10-11 00:00:00 38.8 kg/m2 [facility] Body Weight 2020-10-11 00:00:00 282 [lb_av] [facility] Systolic blood 2020-10-06 20:05:00 141 mm[Hg] Univer sity of pressure [facility] Diastolic blood 2020-10-06 20:05:00 84 mm[Hg] Unive rsity of pressure [facility] Heart rate 2020-10-06 20:05:00 97 /min Universi ty [facility] Body temperature 2020-10-06 20:05:00 36.94 Saloni Univ ersity of [facility] Body height 2020-10-06 20:05:00 180.3 cm Universi ty [facility] Body weight 2020-10-06 20:05:00 127.914 kg Universi [facility] BMI 2020-10-06 20:05:00 39.33 kg/m2 Universi [facility] Oxygen saturation in 2020-10-06 20:05:00 100 /min [facility] Arterial blood by [facility] Pulse oximetry Branch BP Diastolic 2020-09-29 00:00:00 94 mm[Hg] [facility] Height 2020-09-29 00:00:00 71.5 [in_i] [facility] BMI (Body Mass 2020-09-29 00:00:00 38.8 kg/m2 [facility] BP Systolic 2020-09-29 00:00:00 149 mm[Hg] [facility] Body Weight 2020-09-29 00:00:00 282.2 [lb_av] [facility] Height 2020-09-15 00:00:00 71.5 [in_i] [facility] BMI (Body Mass 2020-09-15 00:00:00 37.8 kg/m2 [facility] Body Weight 2020-09-15 00:00:00 275 [lb_av] [facility] Height 2020-08-09 00:00:00 71.5 [in_i] [facility] BP Diastolic 2020-05-27 00:00:00 85 mm[Hg] [facility] Height 2020-05-27 00:00:00 71.5 [in_i] [facility] BMI (Body Mass 2020-05-27 00:00:00 38 kg/m2 [facility] BP Systolic 2020-05-27 00:00:00 130 mm[Hg] [facility] Body Weight 2020-05-27 00:00:00 276 [lb_av] [facility] Height 2020-03-03 00:00:00 71.5 [in_i] [facility] BP Diastolic 2019-08-28 00:00:00 85 mm[Hg] [facility] Height 2019-08-28 00:00:00 71.5 [in_i] [facility] BMI (Body Mass 2019-08-28 00:00:00 35.8 kg/m2 [facility] BP Systolic 2019-08-28 00:00:00 140 mm[Hg] [facility] Body Weight 2019-08-28 00:00:00 260.6 [lb_av] [facility] BP Diastolic 2019-07-30 00:00:00 110 mm[Hg] [facility] Height 2019-07-30 00:00:00 71.5 [in_i] [facility] BMI (Body Mass 2019-07-30 00:00:00 35.2 kg/m2 [facility] BP Systolic 2019-07-30 00:00:00 172 mm[Hg] [facility] Body Weight 2019-07-30 00:00:00 256 [lb_av] [facility] BP Diastolic 2019-06-24 00:00:00 87 mm[Hg] [facility] Height 2019-06-24 00:00:00 71.5 [in_i] [facility] BMI (Body Mass 2019-06-24 00:00:00 38.6 kg/m2 [facility] BP Systolic 2019-06-24 00:00:00 142 mm[Hg] [facility] Body Weight 2019-06-24 00:00:00 281 [lb_av] [facility] BP Diastolic 2019-03-16 00:00:00 74 mm[Hg] [facility] Height 2019-03-16 00:00:00 71.5 [in_i] [facility] BMI (Body Mass 2019-03-16 00:00:00 37.1 kg/m2 [facility] BP Systolic 2019-03-16 00:00:00 130 mm[Hg] [facility] Family Practice Body Weight 2019-03-16 00:00:00 270 [lb_av] [facility] Family Practice BP Diastolic 2019-02-26 00:00:00 86 mm[Hg] [facility] Family Practice Height 2019-02-26 00:00:00 71.5 [in_i] [facility] Family Practice BMI (Body Mass 2019-02-26 00:00:00 37.5 kg/m2 [facility] e Family Index) Practice BP Systolic 2019-02-26 00:00:00 124 mm[Hg] [facility] Family Practice Body Weight 2019-02-26 00:00:00 273 [lb_av] [facility] Family Practice Temperature Oral (F) 2019-07-22 20:58:00 98.0 F [facility] [place] Heart Rate 2019-07-22 20:58:00 [facility] Respitory Rate 2019-07-22 20:58:00 Memori [facility] [place] Systolic (mm Hg) 2019-07-22 20:58:00 Trae rial [place] Diastolic (mm Hg) 2019-07-22 20:58:00 Mem orial [place] Temperature Oral (F) 2019-07-22 16:37:00 97.8 F [facility] [place] Heart Rate 2019-07-22 16:37:00 [facility] Respitory Rate 2019-07-22 16:37:00 Memori al [place] Systolic (mm Hg) 2019-07-22 16:37:00 Trae rial [facility] Diastolic (mm Hg) 2019-07-22 16:37:00 Mem orial [facility] Temperature Oral (F) 2019-07-22 13:26:00 98.0 F [facility] [place] Heart Rate 2019-07-22 13:26:00 [facility] Respitory Rate 2019-07-22 13:26:00 Memori al [place] Systolic (mm Hg) 2019-07-22 13:26:00 Trae rial [facility] Diastolic (mm Hg) 2019-07-22 13:26:00 Mem orial [facility] Weight 2019-07-21 08:00:00 [facility] [place] Height 2019-07-21 01:40:00 180.34 cm [facility] [place] BMI Calculated 2019-07-21 01:40:00 Memori al John Weight 2019-07-21 01:40:00 [facility] Procedures Procedure Date / Time Performing Clinician Source Performed NOTICE OF PRIVACY PRACTICES 2022-07-27 00:39:53 Doctor Nithya juarez, [facility] CONSENT/REFUSAL FOR 2022-07-27 00:18:02 Doctor Deniassdon, [facility] DIAGNOSIS AND TREATMENT [facility] US, abdomen, complete 2022-02-19 00:00:00 [facility] US, abdomen, complete 2022-01-10 00:00:00 [facility] MRI, cervical spine, w/wo 2022-01-09 [facility] spine, w/wo 2022-01-05 00:00:00 [facility] contrast [facility] US, testicle 2022-01-04 00:00:00 [facility] electrocardiogram 2021-09-11 00:00:00 [facility] US, testicle 2021-09-11 00:00:00 [facility] ASSIGNMENT OF BENEFITS 2021-04-19 18:20:03 Doctor Unassigned, [facility] XR, thumb 2020-09-15 00:00:00 [facility] electrocardiogram 2020-05-27 00:00:00 [facility] X-RAY OF LUMBAR SPINE 2 OR 2019-06-24 00:00:00 [facility] 3 VIEW Practice MRI, lumbar spine, w/o 2019-06-24 00:00:00 [facility] Tonsillectomy [facility] Encounters Start End Encounter Admission Attending Care Care Encounter Source Date/Time Date/Time Type Type Clinicians Facility Department ID 2022-02-16 Inpatient Rakesh Duggan HCAPM RADI [id number] [facility] 11:30:[address] [place] [address] 2020-03-16 Outpatient FREDY WALLACE MHBL [id number] MH BL 09:59:33 ROSELYN 2020-01-29 Outpatient NAY WALLACESE MHSE [id number] MH 08:56:29 ROSELYN [facility] 2022-07-26 2022-07-26 Emergency X APRYL CASAS [facility] ERT 1 [id number] [facility] 19:32:00 20:36:00 APRYL CASAS [facility] 2022-07-26 2022-07-26 Emergency Casas, [facility] [id number] Univers 19:32:00 20:36:00 Apryl FIORE [id number] i ty of [place] [id number] [facility] [id number] [facility] 084 Branch 2022-07-26 2022-07-26 Orders Doctor TAMAR [id number] [facility] 00:00:00 00:00:00 Only Unassigned, SID [id number] ity of [place] [facility] [id number] [facility] [id number] [facility] 009 Branch 2022-07-17 2022-07-17 Outpatient Augusto, PRIV PRIV [id number] 00:00:00 00:00:00 Kirstie [id number] 2022-06-05 2022-06-05 Outpatient GC_PEPLLC_D PRIV PRIV [id number] [facility] 00:00:00 00:00:00 ass_N [id number] Medica l 2022-06-05 2022-06-05 Outpatient Augusto, PRIV PRIV [id number] 00:00:00 00:00:00 Kirstie [id number] 2022-05-28 Outpatient Patel_J VFP VFP [id number] [facility] 00:00:00 00:00:00 [id number] Family Practic e 2022-05-17 2022-05-17 Outpatient Bui_Q_WAGDN VFP VFP [id number] [facility] 00:00:00 00:00:00 U [id number] Family Practic e 2022-05-12 2022-05-12 Outpatient Bui_Q_WAGDN VFP VFP [id number] [facility] 05:03:00 05:03:00 U [id number] Family Practic e 2022-05-07 2022-05-07 Outpatient Patel_J VFP VFP [id number] [facility] 06:07:00 06:07:00 [id number] Family Practic e 2022-05-07 2022-05-07 Tara Albert [facility] [place] - [id number] [facility] 00:00:00 00:00:00 Myzach Chiquita montgomery MD: [id number] Medical - Pract [facility], [address] [address], ([facility]) [place] [address] , Ph. 2022-04-03 2022-04-03 Outpatient GC_PEPLLC_D PRIV PRIV [id number] [facility] 10:58:00 10:58:00 ass_N [id number] Medica l 2022-04-03 2022-04-03 Outpatient Augusto, PRIV PRIV [id number] 00:00:00 00:00:00 Kirstie [id number] 2022-03-06 2022-03-06 Urgent Shaheen Butts [facility] [id number] Univers 12:00:00 12:20:00 [facility] [id number] [facility] [id number] [place] IAN?BLEA [id number] [address] MEDICAL OFFICE BUILDING 2022-03-06 2022-03-06 Outpatient R [facility] [id number] Univers 12:00:00 12:00:00 [id number] ity [facility] 2022-03-06 2022-03-06 Outpatient R [facility] [id number] Univers 12:00:00 12:00:00 SHAHEEN kuhn o f [facility] 2022-03-05 2022-03-05 Outpatient GC_PEPLLC_D PRIV PRIV [id number] [facility] 07:08:00 07:08:00 ass_N [id number] Medica l 2022-03-05 2022-03-05 Outpatient Augusto, PRIV PRIV [id number] 00:00:00 00:00:00 Kirstie [id number] 2022-02-22 Outpatient GC_PEPLLC_D PRIV PRIV [id number] [facility] 05:27:00 05:27:00 ass_N [id number] Medica l 2022-02-20 2022-02-20 Outpatient Patel_J VFP VFP [id number] [facility] 11:29:00 11:29:00 [id number] Family Practic e 2022-02-20 2022-02-20 Outpatient Bui_Q_WAGDN VFP VFP [id number] [facility] 11:29:00 11:29:00 U [id number] Family Practic e 2022-02-20 2022-02-20 Outpatient Bui_Q_WAGDN VFP VFP [id number] [facility] 11:29:00 11:29:00 U [id number] Family Practic e 2022-02-19 2022-02-19 Outpatient Patel_J VFP VFP [id number] [facility] 03:01:00 03:01:00 [id number] Family Practic e 2022-02-19 2022-02-19 Leah N VFP [place] - [id number] V illage 00:00:00 00:00:00 GAGE Wallace: [facility] 9511 Medical - Practi maykel Costa VM_HOU_Cypr e r , [facility] [address], [place] [address] , Ph. 2022-02-01 2022-02-15 Outpatient Rakesh Duggan [facility] RADI LA00 [id number] [facility] 10:00:00 00:00:00 13 [facility] 2022-02-01 2022-02-01 Outpatient Bui_Q_WAGDN VFP VFP [id number] [facility] 05:56:00 05:56:00 U [id number] Family Practic e 2022-01-23 2022-01-23 Outpatient Patel_J VFP VFP [id number] [facility] 09:04:00 09:04:00 Family Practic e 2022-01-18 2022-01-18 Outpatient GC_PEPLLC_D PRIV PRIV [id number] [facility] 07:17:00 07:17:00 ass_N [id number] Medica l 2022-01-10 2022-01-10 Outpatient Patel_J VFP VFP [id number]- [facility] 12:59:00 12:59:00 Family Practic e 2022-01-10 2022-01-10 Outpatient Patel_J VFP VFP [id number] [facility] 12:59:00 12:59:00 Family Practic e 2022-01-10 2022-01-10 Leah N VFP [place] - [id number] V illage 00:00:00 00:00:00 GAGE Wallace: [place] [facility] [address] Medical - Practi c Shadow VM_HOU_Shad e [place] [facility], [address] [address] , Ph. 2022-01-09 2022-01-09 Outpatient Patel_J VFP VFP [id number] [facility] 12:16:00 12:16:00 Family Practic e 2022-01-04 2022-01-04 Outpatient Patel_J VFP VFP [id number] [facility] 03:18:00 03:18:00 [id number] Family Practic e 2022-01-04 2022-01-04 Leah N VFP [place] - [id number] V illage 00:00:00 00:00:00 GAGE Wallace: [place] [facility] 9511 Medical - Practi c Jhone VM_HOU_[address], [facility] [address], [place] [address] , Ph. 2022 2022 Outpatient Ordoñez-Gor_M VFP VFP [id number] [facility] 11:05:00 11:05:00 [id number] Family Practic e 2022-01-01 2022-01-01 Outpatient Ordoñez-Gor_M VFP VFP [id number] [facility] 02:47:00 02:47:00 [id number] Family Practic e 2021-12-20 2021-12-20 Outpatient Ordoñez-Gor_M VFP VFP [id number] [facility] 09:32:00 09:32:00 [id number] Family Practic e 2021-12-20 2021-12-20 Outpatient Ordoñez-Gor_M VFP VFP [id number] - [facility] 09:32:00 09:32:00 [id number] Family Practic e 2021-12-09 2021-12-09 Laboratory Only, Ang Db Test [facility] 1.2.8 [id number] [id number] Univers 13:45:00 14:00:00 Only Shaheen Butts [employer] [id number] ity of [place] [id number] [place] IAN?BLEA [phone] [place] dic[address] MEDICAL OFFICE BUILDING 2021-12-09 2021-12-09 Outpatient R [facility] [id number] Univers 13:45:00 13:45:00 [id number] ity [facility] 2021-12-09 2021-12-09 Outpatient R BENJAMÍN [facility] [id number] Univers 13:45:00 13:45:00 SHAHEEN kuhn o f [facility] 2021-12-05 2021-12-05 Letter Provider, [facility] [id number] Univers 00:00:00 00:00:00 (Out) Ang Db HEALTH [id number] it y of Urgent Care [place] [id number] [place] IAN?BLEA [phone] [place] dical [address] MEDICAL OFFICE BUILDING 2021-09-28 2021-09-28 Outpatient Ordoñez-Gor_M VFP VFP [id number] [place] 09:56:00 09:56:00 [id number] Family Practic e 2021-09-22 2021-09-22 Outpatient Ordoñez-Gor_M VFP VFP [id number] [place] 12:24:00 12:24:00 [id number] Family Practic e 2021-09-11 2021-09-11 Outpatient Ordoñez-Gor_M VFP VFP [id number] - Village 01:51:00 01:51:00 [id number] Family Practic e 2021-09-11 2021-09-11 Outpatient Ordoñez-Gor_M VFP VFP 4244 [place] 01:51:00 01:51:00 [id number] Family Practic e 2021-09-11 2021-09-11 Leah N VFP [place] - [id number] V illage 00:00:00 00:00:00 GAGE Wallace: [place] [facility] [address] Medical - Practi c Shadow VM_HOU_Shad e [place] [address] [place] [address], [place] [address] , Ph. 2021-09-10 2021-09-10 [facility] [id number] Univers 19:27:37 20:32:[address] [facility] [id number] [facility] [id number] [place] Ian?Blea [phone] [address] Medical Office Building 2021-09-10 2021-09-10 Outpatient R [facility] [id number] Univers 19:40:00 19:40:00 [id number] [facility] 2021-09-10 2021-09-10 [facility] [id number] Univers 19:40:00 19:40:00 [facility] 2021-08-28 2021-08-28 Outpatient Bui_Q_WAG VFP VFP [id number] [facility] 06:49:00 06:49:00 [id number] Family Practic e 2021-07-19 2021-07-19 Outpatient Bui_Q_WAG VFP VFP [id number] [facility] 12:32:00 12:32:00 [id number] Family Practic e 2021-07-13 2021-07-13 Outpatient Ordoñez-Gor_M VFP VFP [id number] [facility] 04:53:00 04:53:00 [id number] Family Practic e 2021-04-27 2021-04-27 Outpatient Ordoñez-Gor_M VFP VFP [id number] [facility] 03:22:00 03:22:00 [id number] Family Practic e 2021-04-27 2021-04-27 Outpatient Ordoñez-Gor_M VFP VFP [id number] [facility] 03:22:00 03:22:00 [id number] Family Practic e 2021-04-26 2021-04-26 Outpatient Bui_Q_WAG VFP VFP [id number] [facility] 07:55:00 07:55:00 [id number] Family Practic e 2021-04-22 2021-04-22 Outpatient Bui_Q_WAG VFP VFP [id number] Village 06:27:00 06:27:00 [id number] Family Practic e 2021-04-22 2021-04-22 Vera D VFP [place] - [id number] V illage 00:00:00 00:00:00 Jimenez SOLAR LAB TECHNICIAN: [facility] ly [address] [facility]_HOU_N. e ann [place], [place] [address], ([place]) [place] [address] , Ph. 2021-04-21 2021-04-21 Outpatient Tiago-Nathan_M VFP VFP [id number] [place] 06:04:00 06:04:00 [id number] Family Practic e 2021-04-19 2021-04-19 Laboratory Lab, [facility] I [facility] 1.2. 840.114 [id number] Univers 13:20:36 13:40:36 Only Zeina Knox [facility] [id number] ity of [place] 4.2.7.2.686 [place] Xiomy [phone] [address] Office Building One 2021-04-19 2021-04-19 Outpatient R [facility] [id number] Univers 13:20:00 13:20:00 [id number] ity [facility] 2021-04-19 2021-04-19 Outpatient R LISETTE [facility] [id number] Univers 13:20:00 13:20:00 ZEINA ity [facility] 2021-04-19 2021-04-19 Orders Doctor BOYLE [id number] [id number] Univers 00:00:00 00:00:00 Only Unassigned, SID 350.1.13.10 [facility] 4.2.7.2.686 [place] [phone] [address] 2021-02-22 2021-02-22 Outpatient Bui_Q_WAG VFP VFP [id number] Village 11:50:00 11:50:00 [id number] Family Practic e 2021-02-20 2021-02-20 Outpatient Tiago-Nathan_M VFP VFP [id number] [place] 02:50:00 02:50:00 [id number] Family Practic e 2021-02-20 2021-02-20 Mark Carson VFP [place] - [id number] [facility] 00:00:00 00:00:00 MD Subhash: [facility] Famil y 6122 Medical [facility] [address], ([facility]) [place] [address] , Ph. 2021-01-12 2021-01-12 Outpatient Bui_Q_WAG VFP VFP [id number] [facility] 09:43:00 09:43:00 [id number] Family Practic e 2021-01-11 2021-01-11 Outpatient Bui_Q_WAG VFP VFP [id number] [facility] 03:20:00 03:20:00 [id number] Family Practic e 2020-12-01 2020-12-01 Outpatient Bui_Q_WAG VFP VFP [id number] [facility] 11:04:00 11:04:00 [id number] Family Practic e 2020-11-28 2020-11-28 Outpatient Bui_Q_WAG VFP VFP [id number] [facility] 04:02:00 04:02:00 [id number] Family Practic e 2020-11-28 2020-11-28 Outpatient Ordoñez-Gor_M VFP VFP [id number] [facility] 04:02:00 04:02:00 [id number] Family Practic e 2020-11-28 2020-11-28 Mark Carson VFP [place] - [id number] [facility] 00:00:00 00:00:00 MD Subhash: [facility] Famil y 6122 Medical - Practi [facility]_[place] [address], ([facility]) [place] [address] , Ph. 2020-11-19 2020-11-19 Outpatient Ordoñez-Gor_M VFP VFP [id number] [facility] 01:21:00 01:21:00 [id number] Family Practic e 2020-11-19 2020-11-19 Outpatient Bui_Q_WAG VFP VFP [id number] [facility] 01:21:00 01:21:00 [id number] Family Practic e 2020-11-14 2020-11-14 Outpatient Bui_Q_WAG VFP VFP [id number] [facility] 05:07:00 05:07:00 [id number] Family Practic e 2020-11-14 2020-11-14 Marguerite VFP [place] - [id number] [facility] 00:00:00 00:00:00 Chiquita Hopson Famil y SOLAR LAB TECHNICIAN: 6122 Medical - Pract ic Bellamy VM_HOU_[place] [address], ([facility]) [place] [address] , Ph. 2020-11-07 2020-11-07 Outpatient Ordoñez-Nathan_M VFP VFP [id number] [facility] 12:54:00 12:54:00 [id number] Family Practic e 2020-10-11 2020-10-11 Outpatient Bui_Q_WAG VFP VFP [id number] [facility] 03:26:00 03:26:00 [id number] Family Practic e 2020-10-11 2020-10-11 Peyton VFP [place] - [id number] V illage 00:00:00 00:00:00 Chiquita Solis Famil y MD: 4615 Medical - Pract ic [place] VM_HOU_Adrianna e Jamie [facility] ([address] [address] , Ph. 2020-10-06 2020-10-06 Urgent Provider, [facility] Urgent Care [facility] [id number] [id number] Univers 13:45:56 15:07:38 Zeina Hoyos [facility] [id number] [facility] [id number] [place] [phone] [place] [address] [address] One 2020-10-06 2020-10-06 Outpatient Kala KNOX [facility] [id number] Univers 14:00:00 14:00:00 ZEINA kuhn [facility] 2020-10-03 2020-10-03 Outpatient Bui_Q_WAG VFP VFP [id number] [facility] 02:23:00 02:23:00 [id number] Family Practic e 2020-09-29 2020-09-29 Outpatient Bui_Q_WAG VFP VFP [id number] [facility] 06:34:00 06:34:00 [id number] Family Practic e 2020-09-29 2020-09-29 Mark Carson VFP [place] - [id number] [facility] 00:00:00 00:00:00 MD Subhash: [facility] Famil y 6122 Medical - Practi [place] [address], ([place] [address] , Ph. 2020-09-28 2020-09-28 Outpatient Bui_Q_WAG VFP VFP [id number] [facility] 03:37:00 03:37:00 [id number] Family Practic e 2020-09-22 2020-09-22 Outpatient Bui_Q_WAG VFP VFP [id number] [facility] 07:46:00 07:46:00 [id number] Family Practic e 2020-09-15 2020-09-15 Outpatient Bui_Q_WAG VFP VFP [id number] [facility] 11:25:00 11:25:00 [id number] Family Practic e 2020-09-15 2020-09-15 Outpatient Bui_Q_WAG VFP VFP [id number] [facility] 11:25:00 11:25:00 [id number] Family Practic e 2020-09-15 2020-09-15 Porchae B VFP [place] - [id number] [facility] 00:00:00 00:00:00 [place], [facility] Famil y SOLAR LAB TECHNICIAN: 6122 Medical - Pract ic [place] [address], ([facility]) [place] [address] , Ph. 2020-08-16 2020-08-16 Outpatient Ordoñez-Gor_M VFP VFP [id number] [facility] 07:28:00 07:28:00 [id number] Family Practic e 2020-08-09 2020-08-09 Outpatient Bui_Q_WAG VFP VFP [id number] [facility] 11:31:00 11:31:00 [id number] Family Practic e 2020-08-09 2020-08-09 Mark Carson VFP [place] - [id number] [address] [place] [address] 00:00:00 00:00:00 MD Subhash: [facility] Famil y 6[address] [place] [address], ([facility]) [place] [address] , Ph. 2020-08-03 2020-08-03 Outpatient Ordoñez-Gor_M VFP VFP [id number] 15-202 [place] 08:39:00 08:39:00 [id number] Family Practic e 2020-06-19 2020-06-19 Outpatient Bui_Q_WAG VFP VFP [id number] [place] 10:02:00 10:02:00 [id number] Family Practic e 2020-05-31 2020-05-31 Outpatient Ordoñez-Gor_M_ VFP VFP 424 [id number] [place] 01:21:00 01:21:00 PATIENCE [id number] Family Practic e 2020-05-27 2020-05-27 Outpatient Ordoñez-Gor_M_ VFP VFP 424 [id number] [place] 02:52:00 02:52:00 PATIENCE [id number] Family Practic e 2020-05-27 2020-05-27 Outpatient Ordoñez-Gor_M VFP VFP [id number] 15-202 [place] 02:52:00 02:52:00 [id number] Family Practic e 2020-05-27 2020-05-27 Mark Carson VFP [place] - [id number] [facility] 00:00:00 00:00:00 MD Subhash: [facility] Famil y 6122 Medical - Practi [place] [address], ([place] [address] , Ph. 2020-03-04 2020-03-04 Outpatient Ordoñez-Gor_M VFP VFP [id number] 15-202 Village 05:29:00 05:29:00 [id number] Family Practic e 2020-03-04 2020-03-04 Outpatient Ordoñez-Gor_M VFP VFP [id number] 15-202 [place] 05:29:00 05:29:00 [id number] Family Practic e 2020-03-04 2020-03-04 Outpatient Ordoñez-Gor_M_ VFP VFP 424 [id number] [place] 05:27:00 05:27:00 PATIENCE [id number] Family Practic e 2020-03-03 2020-03-03 Outpatient Ordoñez-Gor_M_ VFP VFP 424 [id number] [place] 03:15:00 03:15:[place] [address] Family Practic e 2020-03-03 2020-03-03 Mrak Carson VFP [place] - [id number] Village 00:00:00 00:00:00 MD Subhash: [facility] Famil y 6122 Medical - Practi [facility] e , [place] [address], ([place] [address] , Ph. 2019-12-28 2019-12-28 Outpatient Ordoñez-Gor_M VFP VFP [id number] 15-202 [place] 02:12:00 02:12:00 [id number] Family Practic e 2019-12-28 2019-12-28 Outpatient Ordoñez-Gor_M VFP VFP [id number] 15-202 [place] 02:12:00 02:12:00 [id number] Family Practic e 2019-12-28 2019-12-28 Outpatient Ordoñez-Gor_M VFP VFP [id number] 15-202 [place] 02:12:00 02:12:00 [id number] Family Practic e 2019-12-28 2019-12-28 Outpatient Ordoñez-Gor_M VFP VFP [id number] 15-202 [place] 02:12:00 02:12:00 74621 Family Practic e 2019-12-28 2019-12-28 Outpatient Ordoñez-Gor_M VFP VFP [id number] 15-202 [place] 02:12:00 02:12:00 [id number] Family Practic e 2019-12-28 2019-12-28 Outpatient Ordoñez-Gor_M_ VFP VFP 424 [id number] [place] 02:12:00 02:12:[place] [address] Family Practic e 2019-12-25 2019-12-25 Outpatient Ordoñez-Gor_M VFP VFP [id number] 15-202 [place] 02:57:00 02:57:00 [id number] Family Practic e 2019-08-28 2019-08-28 Shandra O VFP [place] - [id number] [facility] 00:00:00 00:00:00 Romy, [facility] Jennifer montgomery MD: 7153 Medical - Pract [facility], [facility] e [address], [place] [address] , Ph. 2019-07-30 2019-07-30 Shandra [facility] [place] - [id number] [facility] 00:00:00 00:00:00 Roym [facility] Jennifer montgomery MD: 9430 Medical [facility], VM_HOU_Pear e [address], [place] [address] , Ph. 2019-07-21 2019-07-22 Inpatient nullFlavo [facility] [id number] Memoria 01:23:25 22:35:00 r John [address] [place] [address] 2019-07-21 2019-07-22 Inpatient nullFlavo [facility] [id number] Memoria 01:23:25 22:35:[address] 2019-07-20 2019-07-22 Outpatient Corbett, [facility] [id number] 20:23:25 17:35:00 2019-07-21 2019-07-20 Inpatient E [facility] MED [id number] [facility] 01:26:00 20:23:00 2019-06-24 2019-06-24 Shandra [facility] [place] - [id number] [facility] 00:00:00 00:00:00 OrdoñezNathan [facility] Jennifer montgomery MD: [address] [facility], _HOU_Pear [address], [place] [address] , Ph. 2019-03-16 2019-03-16 Shandra George [facility] [place] - [id number] [facility] 00:00:00 00:00:00 Chiquita Stanton MD: [address] [facility], VM_HOU_Pear e [address], [place] [address] , Ph. 2019-02-26 2019-02-26 Shandra [facility] [place] - [id number] [facility] 00:00:00 00:00:00 Chiquita Stanton MD: [address]Joce Medical [facility], VM_HOU_Pear e [address], [place] [address] , Ph. Results Test Description Test Time Test Comments Results Result Comments Source Magnesium [Mass/volume] in Serum or Plasma 2022-01-08 00:00: 00 Test Item Value Reference Range Interpretation Comme nts magnesium (test code = magnesium) 2.0 mg/dL 1.5-2.5 [facility] by Westergren method 2022-01-08 00:00:00 Test Item Value Reference Range Interpretation Comments sed rate by modified 6 mm/h See_Comment [Autom ated message] The westergren (test code = syst em which generated sed rate by modified this re sult transmitted westergren) reference range : < or = 15. The referen ce range was not used to interpret this result as normal/abnormal . [facility]olate+Cyanocobalamin [Interpretation] in Serum or Blood 2022-01-08 00:00:00 Test Item Value Reference Range Interpretation Comments vitamin B12 (test code = vitamin 379 pg/mL 200-1100 B12) folate, serum (test code = folate, 7.9 NG/mL serum) [facility]-reactive protein, [id number] 00:00:00 Test Item Value Reference Range Interpretation Comments C-reactive protein (test code = 6.4 mg/L <8.0 C-reactive protein) [facility] complete W Reflex Culture panel - Urine 2022-01-08 00:00:00 Test Item Value Reference Range Interpretation Comments color (test code = yellow yellow color) appearance (test code clear clear = appearance) specific gravity (test 1.022 1.001-1.035 code = specific gravity) pH (test code = pH) 5.5 5.0-8.0 glucose (test code = negative negative glucose) bilirubin (test code = negative negative bilirubin) ketones (test code = negative negative ketones) occult blood (test negative negative code = occult blood) protein (test code = negative negative protein) nitrite (test code = negative negative nitrite) leukocyte esterase negative negative (test code = leukocyte esterase) WBC (test code = WBC) 0-5 See_Comment [Auto mated message] The system [employer] generated this result transmitted ref erence range: < or = 5 . The reference range was not used to int erpret this result as normal/abnormal . RBC (test code = RBC) 0-2 See_Comment [Auto mated message] The system [employer] generated this result transmitted ref erence range: < or = 2 . The reference range was not used to int erpret this result as normal/abnormal . squamous epithelial 0-5 See_Comment [Automa loree message] cells (test code = The syste m which squamous epithelial generate d this result cells) transmitted ref erence range: < or = 5 . The reference range was not used to int erpret this result as normal/abnormal . bacteria (test code = none seen none seen bacteria) hyaline cast (test none seen none seen code = hyaline cast) [facility] identified in Urine by [id number] 00:00:00Reflexive Urine CultureVillage [facility] HospitalInsulin [Units/volume] in Serum or [id number] 00:00:00 Test Item Value Reference Range Interpretation Comments insulin (test code = insulin) 63.7 uIU/mL H [facility]emoglobin A1c/Hemoglobin.total in [id number] 00:00:00 Test Item Value Reference Range Interpretation Comments Hemoglobin A1c/Hemoglobin.total in 5.7 % 1.0-5.7 Blood (test code = 4548-4) average blood glucose (calculation) 117 mg/dL (test code = average blood glucose (calculation)) [facility] W Auto Differential panel - [id number] 00:00:00 Test Item Value Reference Range Interpretation Comments WBC (test code = WBC) 8.19 x10*3/?L 4.00-11.00 RBC (test code = RBC) 4.93 10*12/L 4.63-6.08 hemoglobin (test code = 15.20 g/dL 13.70-17.50 hemoglobin) hematocrit (test code = 45.6 % 40.1-51.0 hematocrit) MCV (test code = MCV) 92.5 fL 80.0-100.0 MCH (test code = MCH) 30.8 pg 25.7-32.2 MCHC (test code = MCHC) 33.3 g/dL 32.3-36.5 RDW-SD (test code = RDW-SD) 42.5 fL 35.1-43.9 platelet count (test code = 270.0 k/uL 150.0-400.0 platelet count) MPV (test code = MPV) 10.8 fL 7.5-11.5 neut% (test code = neut%) 51.2 % 34.0-67.9 lymph% (test code = lymph%) 36.5 % 21.8-53.1 mon% (test code = mon%) 8.3 % 5.3-12.2 eos% (test code = eos%) 3.2 % 0.8-7.0 baso% (test code = baso%) 0.7 % 0.2-1.2 neut# (test code = neut#) 4.2 x10*3/?L 1.8-5.4 lymph# (test code = lymph#) 3.0 x10*3/?L 1.3-3.6 mon# (test code = mon#) 0.7 x10*3/?L 0.3-0.8 eos# (test code = eos#) 0.26 x10*3/?L 0.04-0.54 baso# (test code = baso#) 0.06 x10*3/?L 0.01-0.08 [facility] 2000 panel - Serum or Plasma 2022-01-05 00:00:00 Test Item Value Reference Range Interpretation Comments ALT (test code = ALT) 35 U/L 0-55 AST (test code = AST) 17 U/L 5-34 BUN (test code = BUN) 15.9 mg/dL 8.9-25.0 alk phos (test code = alk phos) 57 unit/L 40-150 glucose (test code = glucose) 137 mg/dL 70-99 H albumin (test code = albumin) 4.1 g/dL 3.4-5.1 creatinine (test code = 1.19 mg/dL 0.72-1.25 creatinine) eGFR non- (test >60 code = eGFR non-) total bilirubin (test code = 0.4 mg/dL 0.2-1.2 total bilirubin) eGFR - (test >60 code = eGFR - ) sodium (test code = sodium) 140 mEq/L 135-145 potassium (test code = potassium) 3.9 mEq/L 3.5-5.3 chloride (test code = chloride) 103 mmol/L 98-110 total protein (test code = total 7.1 g/dL 6.1-8.2 protein) calcium (test code = calcium) 10.0 mg/dL 8.4-10.4 CO2 (test code = CO2) 30.0 mmol/L 20.0-32.0 anion gap (test code = anion gap) 7 calc [facility] 1996 panel - Serum or [id number] 00:00:00 Test Item Value Reference Range Interpretation Comments HDL (test code = HDL) 25 mg/dL L triglyceride (test code = 251 mg/dL <150 H triglyceride) VLDL (calculated) (test code = VLDL 50 mg/dL (calculated)) cholesterol/HDL ratio (test code = 6.8 mg/dL cholesterol/HDL ratio) non-HDL cholesterol (calculated) 145 mg/dL <160 (test code = non-HDL cholesterol (calculated)) cholesterol (test code = 170 mg/dL <200 cholesterol) Cholesterol in LDL [Mass/volume] in 95 mg/dL <130 Serum or Plasma (test code = 2089-1) [facility]yrotropin [Units/volume] in Serum or Rkiees4830-64-58 00:00:00 Test Item Value Reference Range Interpretation Comments TSH (test code = TSH) 3.852 uIU/mL 0.350-4.940 [facility]portZiqurkcx42-Boodeokmvualtj D3+25-Hydroxyvitamin D2 [Mass/volume] in Serum or [id number] 00:00:00 Test Item Value Reference Range Interpretation Comments vitamin D 25OH (test code = 27.9 NG/mL 30.0-96.0 L vitamin D 25OH) [facility]portUrate [Mass/volume] in Serum or [id number] 00:00:00 Test Item Value Reference Range Interpretation Comments uric acid (test code = uric acid) 7.5 mg/dL 3.5-7.2 H [facility]re[id number] 19:57:00 Test Item Value Reference Range Interpretation Comments Stephania Tr (test code = Pennyo Tr) 7.6 [facility] Hospit[id number] 19:57:00 Test Item Value Reference Range Interpretation Comments Stephania Tr TND (test code = Pennyo Tr 1600 1 TND) [facility] H[id number] 19:57:00 Test Item Value Reference Range Interpretation Comments Vanco Tr (test code = Vanco Tr) 7.6 [facility] HospitalYbhprodGKCIBQYCGF8204-86-65 19:57:00 Test Item Value Reference Range Interpretation Comments Vanco Tr TND (test code = Vanco Tr 1600 1 TND) [facility] [id number] 08:21:00 Test Item Value Reference Range Interpretation Comments Monocytes (test code = Monocytes) 8.3 2.0-12.0 [facility] S[id number] 08:21:00 Test Item Value Reference Range Interpretation Comments Basophils (test code = 0.1 See_Comment [Aut omated message] The Basophils) system which ge nerated this result tra nsmitted reference range : <=1.0. The reference r wilmer was not used to int erpret this result as normal/abnormal . [facility] [id number] 08:21:00 Test Item Value Reference Range Interpretation Comments Neutrophils # (test code = Neutrophils 10.1 1.5-8.1 #) [facility] [id number] 08:21:00 Test Item Value Reference Range Interpretation Comments Lymphocytes # (test code = Lymphocytes 1.6 1.0-5.5 #) [id number] 08:21:00 Test Item Value Reference Range Interpretation Comments Monocytes # (test code 1.1 See_Comment [Aut omated message] The = Monocytes #) system which generated this result tra nsmitted reference range : <=0.8. The reference r wilmer was not used to int erpret this result as normal/abnormal . [facility] [id number] 08:21:00 Test Item Value Reference Range Interpretation Comments Magnesium Lvl (test code = Magnesium 2.3 1.8-2.4 Lvl) [facility]2019-09-04 08:21:00 Test Item Value Reference Range Interpretation Comments Phosphorus (test code = Phosphorus) 3.9 2.5-4.5 [id number] 08:21:00 Test Item Value Reference Range Interpretation Comments AGAP (test code = AGAP) 9.0 10.0-20.0 [facility] [id number] 08:21:00 Test Item Value Reference Range Interpretation Comments Glucose Lvl (test code = Glucose Lvl) 124 70-99 [facility] HospitalYxzppouSXVWLIPJAMWD1831-04-16 08:21:00 Test Item Value Reference Range Interpretation Comments BUN (test code = BUN) 17 7-22 [facility] HospitalThlwcdpFPJIDSVZUPSF4608-03-01 08:21:00 Test Item Value Reference Range Interpretation Comments Creatinine Lvl (test code = Creatinine 1.07 0.50-1.40 Lvl) [facility] HospitalXabyyjxTBYHXELRYJQI6171-33-77 08:21:00 Test Item Value Reference Range Interpretation Comments Sodium Lvl (test code = Sodium Lvl) 140 135-145 [facility] HospitalJjwmgcsNIMDWXSLELWJ9322-87-41 08:21:00 Test Item Value Reference Range Interpretation Comments Potassium Lvl (test code = Potassium 4.0 3.5-5.1 Lvl) [facility] HospitalTyxzttvRXUSOZLQZRYX7145-79-90 08:21:00 Test Item Value Reference Range Interpretation Comments Chloride Lvl (test code = Chloride Lvl) 109 95-109 [facility] HospitalJobccrnJRPSZHWJNBFR1385-92-29 08:21:00 Test Item Value Reference Range Interpretation Comments CO2 (test code = CO2) 26 24-32 [facility] HospitalYaylvwaJCHTWRYJTDPU1822-72-32 08:21:00 Test Item Value Reference Range Interpretation Comments Calcium Lvl (test code = Calcium Lvl) 8.7 8.5-10.5 [facility] HospitalWjmkqwtRCUCDHLIVIBA4734-77-36 08:21:00 Test Item Value Reference Range Interpretation Comments eGFR (test code = eGFR) 89 [facility]YdcybteGTSEBUXTLS9813-10-11 08:21:00 Test Item Value Reference Range Interpretation Comments WBC (test code = WBC) 12.8 3.7-10.4 [facility] SystemSrkqwnrJUHEGYXXSQ7700-18-79 08:21:00 Test Item Value Reference Range Interpretation Comments RBC (test code = RBC) 4.80 4.70-6.10 [facility] SystemNununhgKQSDBPUIZV3747-16-45 08:21:00 Test Item Value Reference Range Interpretation Comments Hgb (test code = Hgb) 14.6 14.0-18.0 [facility] SystemQbqthhhBYJSMCGMAF6705-60-41 08:21:00 Test Item Value Reference Range Interpretation Comments Hct (test code = Hct) 43.4 42.0-54.0 [facility] SystemJlucfvySEMPQVSAGQ6811-99-32 08:21:00 Test Item Value Reference Range Interpretation Comments MCV (test code = MCV) 90.3 80.0-94.0 [facility] SystemDuyfdaxOQADFOCLXK5938-06-27 08:21:00 Test Item Value Reference Range Interpretation Comments MCH (test code = MCH) 30.5 pg 27.0-31.0 [facility] SystemKcekjkgYLYDWFLHQU5712-63-33 08:21:00 Test Item Value Reference Range Interpretation Comments MCHC (test code = MCHC) 33.8 32.0-36.0 [facility] SystemBjmldnaVIOLERPPJJ6059-26-16 08:21:00 Test Item Value Reference Range Interpretation Comments RDW (test code = RDW) 13.2 11.5-14.5 [facility] SystemEnrixwfYOGCMAIEGT4448-19-81 08:21:00 Test Item Value Reference Range Interpretation Comments Platelet (test code = Platelet) 225 133-450 [facility] SystemZeqjdcoTVOFWHOZNU3537-03-22 08:21:00 Test Item Value Reference Range Interpretation Comments MPV (test code = MPV) 9.1 7.4-10.4 [facility] SystemLfergrvOBSMQKIXRN2854-97-44 08:21:00 Test Item Value Reference Range Interpretation Comments Segs (test code = Segs) 79.4 45.0-75.0 [facility] SystemYvkoihwBFHJIQINKT9996-55-89 08:21:00 Test Item Value Reference Range Interpretation Comments Lymphocytes (test code = Lymphocytes) 12.2 20.0-40.0 [facility] SystemImdksuuXINMZJVKKK4443-57-15 08:21:00 Test Item Value Reference Range Interpretation Comments Monocytes (test code = Monocytes) 8.3 2.0-12.0 [facility] SystemXmvremaKDQAGZVQVH7814-32-56 08:21:00 Test Item Value Reference Range Interpretation Comments Basophils (test code = 0.1 See_Comment [Aut omated message] The Basophils) system which ge nerated this result tra nsmitted reference range : <=1.0. The reference r wilmer was not used to int erpret this result as normal/abnormal . [facility] SystemRjpxuzlOZTTAFRTHM0609-07-55 08:21:00 Test Item Value Reference Range Interpretation Comments Neutrophils # (test code = Neutrophils 10.1 1.5-8.1 #) [facility] SystemKlhkavyHPOEZEMSGD8437-60-95 08:21:00 Test Item Value Reference Range Interpretation Comments Lymphocytes # (test code = Lymphocytes 1.6 1.0-5.5 #) [facility]daibhfKNBUDUFCRT1451-[facility]-56 08:21:00 Test Item Value Reference Range Interpretation Comments Monocytes # (test code 1.1 See_Comment [Aut omated message] The = Monocytes #) system which generated this result tra nsmitted reference range : <=0.8. The reference r wilmer was not used to int erpret this result as normal/abnormal . [facility] FPFHX7511-42-53 08:21:00 Test Item Value Reference Range Interpretation Comments Magnesium Lvl (test code = Magnesium 2.3 1.8-2.4 Lvl) [facility] [id number] 08:21:00 Test Item Value Reference Range Interpretation Comments Phosphorus (test code = Phosphorus) 3.9 2.5-4.5 [facility] HospitalNivtixmBETPEOCVICTM6860-60-46 08:21:00 Test Item Value Reference Range Interpretation Comments AGAP (test code = AGAP) 9.0 10.0-20.0 [facility] HospitalOeulwkcYYXXYEUQOBHU2780-52-91 08:21:00 Test Item Value Reference Range Interpretation Comments Glucose Lvl (test code = Glucose Lvl) 124 70-99 [facility] HospitalRtvmfwdULQERMGABOQN2675-41-57 08:21:00 Test Item Value Reference Range Interpretation Comments BUN (test code = BUN) 17 7-22 [facility] HospitalLaydyomRAHZNQWDRKGV2506-89-83 08:21:00 Test Item Value Reference Range Interpretation Comments Creatinine Lvl (test code = Creatinine 1.07 0.50-1.40 Lvl) [facility] HospitalEbcaqqpEFEMHOLSRCPK8675-83-39 08:21:00 Test Item Value Reference Range Interpretation Comments Sodium Lvl (test code = Sodium Lvl) 140 135-145 [facility] HospitalNhszryoDVSYJYZWXRPU0279-93-41 08:21:00 Test Item Value Reference Range Interpretation Comments Potassium Lvl (test code = Potassium 4.0 3.5-5.1 Lvl) [facility] HospitalDodvzcaSYIGHISHICXE6122-24-77 08:21:00 Test Item Value Reference Range Interpretation Comments Chloride Lvl (test code = Chloride Lvl) 109 95-109 [facility] HospitalBosbcgoRFZXLBAIZBRF7103-72-48 08:21:00 Test Item Value Reference Range Interpretation Comments CO2 (test code = CO2) 26 24-32 [facility] HospitalEvhwspzNRNQGBTIWEND0606-44-16 08:21:00 Test Item Value Reference Range Interpretation Comments Calcium Lvl (test code = Calcium Lvl) 8.7 8.5-10.5 [facility] HospitalNhpnkhjSNCQSVUMCQXZ9254-84-29 08:21:00 Test Item Value Reference Range Interpretation Comments eGFR (test code = eGFR) 89 [facility] SystemSswazqdDMUIJDHUQQ7256-45-78 08:21:00 Test Item Value Reference Range Interpretation Comments WBC (test code = WBC) 12.8 3.7-10.4 [facility] SystemZoerrvjZEZDLNHGMY2016-17-02 08:21:00 Test Item Value Reference Range Interpretation Comments RBC (test code = RBC) 4.80 4.70-6.10 [facility] SystemPgivthyNSYLUXHAOW7061-57-60 08:21:00 Test Item Value Reference Range Interpretation Comments Hgb (test code = Hgb) 14.6 14.0-18.0 [facility] SystemKrjvxdbJMEPCXWKYH0480-85-62 08:21:00 Test Item Value Reference Range Interpretation Comments Hct (test code = Hct) 43.4 42.0-54.0 [facility] SystemCygbaxaAARORKVCOK7870-93-47 08:21:00 Test Item Value Reference Range Interpretation Comments MCV (test code = MCV) 90.3 80.0-94.0 [facility] SystemEtjdmnaMLBCIYAMVC5385-14-25 08:21:00 Test Item Value Reference Range Interpretation Comments MCH (test code = MCH) 30.5 pg 27.0-31.0 [facility] SystemIcebqbmYSYAQKUJLQ2689-52-68 08:21:00 Test Item Value Reference Range Interpretation Comments MCHC (test code = MCHC) 33.8 32.0-36.0 [facility] SystemSbxqdiaXQXVIAIXEO9006-88-53 08:21:00 Test Item Value Reference Range Interpretation Comments RDW (test code = RDW) 13.2 11.5-14.5 [facility] SystemLggkosbZHZDWOJEUV4581-04-87 08:21:00 Test Item Value Reference Range Interpretation Comments Platelet (test code = Platelet) 225 133-450 [facility] SystemBetvnefOTOXPGUJAK3677-92-30 08:21:00 Test Item Value Reference Range Interpretation Comments MPV (test code = MPV) 9.1 7.4-10.4 [facility] SystemHgkwslvGVCSOOJIUC8910-77-97 08:21:00 Test Item Value Reference Range Interpretation Comments Segs (test code = Segs) 79.4 45.0-75.0 [facility]PfgqgflIEJIYBNMUF8819-67-29 08:21:00 Test Item Value Reference Range Interpretation Comments Lymphocytes (test code = Lymphocytes) 12.2 20.0-40.0 [facility] - [id number] 23:37:00 Test Item Value Reference Range Interpretation Comments W Nile Ab IgG (test code = W Nile Ab Negative IgG) [facility] - [id number] 23:37:00 Test Item Value Reference Range Interpretation Comments W Nile Ab IgM (test code = W Nile Ab Negative IgM) [facility] - FTYQCHHF2664-10-29 23:37:00 Test Item Value Reference Range Interpretation Comments W Nile Ab IgG (test code = W Nile Ab Negative IgG) [facility] - [id number] 23:37:00 Test Item Value Reference Range Interpretation Comments W Nile Ab IgM (test code = W Nile Ab Negative IgM) [facility] Hvccoh7993-98-57 19:09:00 Test Item Value Reference Range Interpretation Comments Gram Stain Report No Organisms Seen Rare (test code = Gram WBC's Seen Stain Report) [facility]annCulture: CSF w/Gram Zjtry0575-79-84 19:09:00 Test Item Value Reference Range Interpretation Comments Culture: CSF w/Gram 48 Hour Report - No Stain (test code = Growth, Holding Culture: CSF w/Gram Stain) [facility]BACT[facility] - [id number] 19:09:00 Test Item Value Reference Range Interpretation Comments Source Strep (test code CSF (07/21/19 2:09 PM) = Source Strep) [facility]BACT[facility] - [id number] 19:09:00 Test Item Value Reference Range Interpretation Comments Strep pneumoniae Ag Negative (07/21/19 2:09 (test code = Strep PM) pneumoniae Ag) [facility] [id number] 19:09:00 Test Item Value Reference Range Interpretation Comments LDH CSF (test code = LDH CSF) 32 [facility] [id number] 19:09:00 Test Item Value Reference Range Interpretation Comments Protein CSF (test code = Protein CSF) 94 15-45 [facility] [id number] 19:09:00 Test Item Value Reference Range Interpretation Comments Tube Num CSF (test code = Tube Num CSF) 4 1 [facility]2019-09-03 19:09:00 Test Item Value Reference Range Interpretation Comments Color CSF (test code Colorless (07/21/19 2:09 = Color CSF) PM) [facility]2019-09-03 19:09:00 Test Item Value Reference Range Interpretation Comments Clarity CSF (test code = Clear (07/21/19 2:09 Clarity CSF) PM) [facility]2019-09-03 19:09:00 Test Item Value Reference Range Interpretation Comments Supernat CSF (test Colorless (07/21/19 2:09 code = Supernat CSF) PM) [facility]2019-09-03 19:09:00 Test Item Value Reference Range Interpretation Comments Nucleated Cells CSF 47 See_Comment [Automa loree message] The (test code = Nucleated syste m which generated Cells CSF) this result tra nsmitted reference range : <=53. The reference r wilmer was not used to int erpret this result as normal/abnormal . [facility]2019-09-03 19:09:00 Test Item Value Reference Range Interpretation Comments RBC CSF (test code = 20 See_Comment [Autom ated message] The RBC CSF) system which ge nerated this result transmit loree reference range : <=03. The reference range was not used to interpr et this result as anand l/abnormal. [facility]2019-09-03 19:09:00 Test Item Value Reference Range Interpretation Comments Neutrophils CSF (test 48 See_Comment [Auto mated message] The code = Neutrophils CSF) syst em which generated this result tra nsmitted reference range : <=6. The reference r wilmer was not used to int erpret this result as normal/abnormal . [facility]2019-09-03 19:09:00 Test Item Value Reference Range Interpretation Comments Lymph CSF (test code = Lymph CSF) 10 40-80 [facility]2019-09-03 19:09:00 Test Item Value Reference Range Interpretation Comments Monocyte CSF (test code = Monocyte CSF) 42 15-45 [facility]2019-09-03 19:09:00 Test Item Value Reference Range Interpretation Comments Glucose CSF (test code = Glucose CSF) 81 45-80 [facility]2019-09-03 19:09:00 Test Item Value Reference Range Interpretation Comments Tube Num CSF (test code = Tube Num CSF) 3 1 [facility]2019-09-03 19:09:00 Test Item Value Reference Range Interpretation Comments Color CSF (test code Colorless (07/21/19 2:09 = Color CSF) PM) [facility]2019-09-03 19:09:00 Test Item Value Reference Range Interpretation Comments Clarity CSF (test code = Clear (07/21/19 2:09 Clarity CSF) PM) [facility]2019-09-03 19:09:00 Test Item Value Reference Range Interpretation Comments Supernat CSF (test Colorless (07/21/19 2:09 code = Supernat CSF) PM) [facility]2019-09-03 19:09:00 Test Item Value Reference Range Interpretation Comments Nucleated Cells CSF 152 See_Comment [Automa loree message] The (test code = Nucleated syste m which generated Cells CSF) this result tra nsmitted reference range : <=53. The reference r wilmer was not used to int erpret this result as normal/abnormal . [facility]2019-09-03 19:09:00 Test Item Value Reference Range Interpretation Comments RBC CSF (test code = 24 See_Comment [Autom ated message] The RBC CSF) system which ge nerated this result transmit loree reference range : <=03. The reference range was not used to interpr et this result as anand l/abnormal. [facility]2019-09-03 19:09:00 Test Item Value Reference Range Interpretation Comments Neutrophils CSF (test 47 See_Comment [Auto mated message] The code = Neutrophils CSF) syst em which generated this result tra nsmitted reference range : <=6. The reference r wilmer was not used to int erpret this result as normal/abnormal . [facility]2019-09-03 19:09:00 Test Item Value Reference Range Interpretation Comments Lymph CSF (test code = Lymph CSF) 44 40-80 [facility]2019-09-03 19:09:00 Test Item Value Reference Range Interpretation Comments Monocyte CSF (test code = Monocyte CSF) 9 15-45 [facility] HospitalEeoiddbUGTQTYUZLM9706-55-58 19:09:00 Test Item Value Reference Range Interpretation Comments VDRL Scr CSF (test Non Reactive (07/21/19 code = VDRL Scr CSF) 2:09 PM) [facility] CenterannGALECULAR [id number] 19:09:00 Test Item Value Reference Range Interpretation Comments Source HSV (test code = CSF (07/21/19 2:09 PM) Source HSV) [facility] [id number] 19:09:00 Test Item Value Reference Range Interpretation Comments HSV 1 by PCR (test Negative (07/21/19 2:09 code = HSV 1 by PCR) PM) [facility] CenterannGALECULAR [id number] 19:09:00 Test Item Value Reference Range Interpretation Comments HSV 2 by PCR (test Negative (07/21/19 2:09 code = HSV 2 by PCR) PM) [facility]annVIRAL - [id number] 19:09:00 Test Item Value Reference Range Interpretation Comments Enterovirus PCR CSF Positive (test code = Enterovirus 8*ABN*(07/21/19 2:09 PCR CSF) PM) [facility]annBACTERIAL - [id number] 19:09:00 Test Item Value Reference Range Interpretation Comments Source Strep (test code CSF (07/21/19 2:09 PM) = Source Strep) [facility]annBACTERIAL - [id number] 19:09:00 Test Item Value Reference Range Interpretation Comments Strep pneumoniae Ag Negative (07/21/19 2:09 (test code = Strep PM) pneumoniae Ag) [facility] [id number] 19:09:00 Test Item Value Reference Range Interpretation Comments LDH CSF (test code = LDH CSF) 32 [facility] CenterannBODY [id number] 19:09:00 Test Item Value Reference Range Interpretation Comments Protein CSF (test code = Protein CSF) 94 15-45 [facility] [id number] 19:09:00 Test Item Value Reference Range Interpretation Comments Tube Num CSF (test code = Tube Num CSF) 4 1 [facility] [id number] 19:09:00 Test Item Value Reference Range Interpretation Comments Color CSF (test code Colorless (07/21/19 2:09 = Color CSF) PM) [facility] [id number] 19:09:00 Test Item Value Reference Range Interpretation Comments Clarity CSF (test code = Clear (07/21/19 2:09 Clarity CSF) PM) [facility]2019-09-03 19:09:00 Test Item Value Reference Range Interpretation Comments Supernat CSF (test Colorless (07/21/19 2:09 code = Supernat CSF) PM) [facility]2019-09-03 19:09:00 Test Item Value Reference Range Interpretation Comments Nucleated Cells CSF 47 See_Comment [Automa loree message] The (test code = Nucleated syste m which generated Cells CSF) this result tra nsmitted reference range : <=53. The reference r wilmer was not used to int erpret this result as normal/abnormal . [facility]2019-09-03 19:09:00 Test Item Value Reference Range Interpretation Comments RBC CSF (test code = 20 See_Comment [Autom ated message] The RBC CSF) system which ge nerated this result transmit loree reference range : <=03. The reference range was not used to interpr et this result as anand l/abnormal. [facility]2019-09-03 19:09:00 Test Item Value Reference Range Interpretation Comments Neutrophils CSF (test 48 See_Comment [Auto mated message] The code = Neutrophils CSF) syst em which generated this result tra nsmitted reference range : <=6. The reference r wilmer was not used to int erpret this result as normal/abnormal . [facility]2019-09-03 19:09:00 Test Item Value Reference Range Interpretation Comments Lymph CSF (test code = Lymph CSF) 10 40-80 [facility]2019-09-03 19:09:00 Test Item Value Reference Range Interpretation Comments Monocyte CSF (test code = Monocyte CSF) 42 15-45 [facility]2019-09-03 19:09:00 Test Item Value Reference Range Interpretation Comments Glucose CSF (test code = Glucose CSF) 81 45-80 [facility]2019-09-03 19:09:00 Test Item Value Reference Range Interpretation Comments Tube Num CSF (test code = Tube Num CSF) 3 1 [facility]2019-09-03 19:09:00 Test Item Value Reference Range Interpretation Comments Color CSF (test code Colorless (07/21/19 2:09 = Color CSF) PM) [facility]2019-09-03 19:09:00 Test Item Value Reference Range Interpretation Comments Clarity CSF (test code = Clear (07/21/19 2:09 Clarity CSF) PM) [facility]2019-09-03 19:09:00 Test Item Value Reference Range Interpretation Comments Supernat CSF (test Colorless (07/21/19 2:09 code = Supernat CSF) PM) [facility]2019-09-03 19:09:00 Test Item Value Reference Range Interpretation Comments Nucleated Cells CSF 152 See_Comment [Automa loree message] The (test code = Nucleated syste m which generated Cells CSF) this result tra nsmitted reference range : <=53. The reference r wilmer was not used to int erpret this result as normal/abnormal . [facility]2019-09-03 19:09:00 Test Item Value Reference Range Interpretation Comments RBC CSF (test code = 24 See_Comment [Autom ated message] The RBC CSF) system which ge nerated this result transmit loree reference range : <=03. The reference range was not used to interpr et this result as anand l/abnormal. [facility]2019-09-03 19:09:00 Test Item Value Reference Range Interpretation Comments Neutrophils CSF (test 47 See_Comment [Auto mated message] The code = Neutrophils CSF) syst em which generated this result tra nsmitted reference range : <=6. The reference r wilmer was not used to int erpret this result as normal/abnormal . [facility]2019-09-03 19:09:00 Test Item Value Reference Range Interpretation Comments Lymph CSF (test code = Lymph CSF) 44 40-80 [facility]2019-09-03 19:09:00 Test Item Value Reference Range Interpretation Comments Monocyte CSF (test code = Monocyte CSF) 9 15-45 [facility] HospitalFebzsclUIHUSEPVES8991-18-04 19:09:00 Test Item Value Reference Range Interpretation Comments VDRL Scr CSF (test Non Reactive (07/21/19 code = VDRL Scr CSF) 2:09 PM) [facility] [id number] 19:09:00 Test Item Value Reference Range Interpretation Comments Source HSV (test code = CSF (07/21/19 2:09 PM) Source HSV) [facility] [id number] 19:09:00 Test Item Value Reference Range Interpretation Comments HSV 1 by PCR (test Negative (07/21/19 2:09 code = HSV 1 by PCR) PM) [facility] HospitalMOLECULAR [id number] 19:09:00 Test Item Value Reference Range Interpretation Comments HSV 2 by PCR (test Negative (07/21/19 2:09 code = HSV 2 by PCR) PM) [facility] - [id number] 19:09:00 Test Item Value Reference Range Interpretation Comments Enterovirus PCR CSF Positive (test code = Enterovirus 8*ABN*(07/21/19 2:09 PCR CSF) PM) [facility]annGram Stain [id number] 19:09:00 Test Item Value Reference Range Interpretation Comments Gram Stain Report No Organisms Seen Rare (test code = Gram WBC's Seen Stain Report) [facility] HospitalCulture: [facility] w/Gram [id number] 19:09:00 Test Item Value Reference Range Interpretation Comments Culture: CSF w/Gram 48 Hour Report - No Stain (test code = Growth, Holding Culture: CSF w/Gram Stain) [facility] CenterActivityHero [id number] 13:16:00 Test Item Value Reference Range Interpretation Comments AST (test code = AST) 22 See_Comment [Auto mated message] The system which ge nerated this result transmit loree reference range : <=37. The reference range was not used to interpr et this result as anand l/abnormal. [facility] CenterActivityHero [id number] 13:16:00 Test Item Value Reference Range Interpretation Comments Glucose Lvl (test code = Glucose Lvl) 164 70-99 [facility]Channel[facility] [id number] 13:16:00 Test Item Value Reference Range Interpretation Comments BUN (test code = BUN) 12 7-22 [facility]Channel[facility] [id number] 13:16:00 Test Item Value Reference Range Interpretation Comments Creatinine Lvl (test code = Creatinine 1.34 0.50-1.40 Lvl) [facility]Activity[facility] [id number] 13:16:00 Test Item Value Reference Range Interpretation Comments Sodium Lvl (test code = Sodium Lvl) 141 135-145 [facility]Channel[facility] [id number] 13:16:00 Test Item Value Reference Range Interpretation Comments Potassium Lvl (test code = Potassium 4.7 3.5-5.1 Lvl) [facility] CenterActivity[facility] [id number] 13:16:00 Test Item Value Reference Range Interpretation Comments Chloride Lvl (test code = Chloride Lvl) 108 95-109 [facility]2019-09-03 13:16:00 Test Item Value Reference Range Interpretation Comments CO2 (test code = CO2) 27 24-32 [facility]2019-09-03 13:16:00 Test Item Value Reference Range Interpretation Comments AGAP (test code = AGAP) 10.7 10.0-20.0 [facility]2019-09-03 13:16:00 Test Item Value Reference Range Interpretation Comments Calcium Lvl (test code = Calcium Lvl) 8.7 8.5-10.5 [facility]2019-09-03 13:16:00 Test Item Value Reference Range Interpretation Comments B/C Ratio (test code = B/C Ratio) 9 1 6-25 [facility]2019-09-03 13:16:00 Test Item Value Reference Range Interpretation Comments Total Protein (test code = Total 8.1 6.4-8.4 Protein) [facility]2019-09-03 13:16:00 Test Item Value Reference Range Interpretation Comments Albumin Lvl (test code = Albumin Lvl) 4.0 3.5-5.0 [facility] [place]2019-09-03 13:16:00 Test Item Value Reference Range Interpretation Comments Globulin (test code = Globulin) 4.1 2.7-4.2 [facility] [place]2019-09-03 13:16:00 Test Item Value Reference Range Interpretation Comments Alk Phos (test code = Alk Phos) 66 39-136 [facility] [place]2019-09-03 13:16:00 Test Item Value Reference Range Interpretation Comments A/G Ratio (test code = A/G Ratio) 1.0 1 0.7-1.6 [facility] [place]2019-09-03 13:16:00 Test Item Value Reference Range Interpretation Comments ALT (test code = ALT) 39 See_Comment [Auto mated message] The system which ge nerated this result transmit olree reference range : <=65. The reference range was not used to interpr et this result as anand l/abnormal. [facility] [place]2019-09-03 13:16:00 Test Item Value Reference Range Interpretation Comments AST (test code = AST) 22 See_Comment [Auto mated message] The system which ge nerated this result transmit loree reference range : <=37. The reference range was not used to interpr et this result as anand l/abnormal. [facility] [place]2019-09-03 13:16:00 Test Item Value Reference Range Interpretation Comments Alk Phos (test code = Alk Phos) 66 39-136 [facility] [place]2019-09-03 13:16:00 Test Item Value Reference Range Interpretation Comments Bili Total (test code = Bili Total) 0.3 0.2-1.3 [facility] [place]2019-09-03 13:16:00 Test Item Value Reference Range Interpretation Comments eGFR (test code = eGFR) 68 [facility]EdjkdlyBMFFKNPTZT9594-36-77 13:16:00 Test Item Value Reference Range Interpretation Comments WBC (test code = WBC) 5.9 3.7-10.4 [facility] SystemUtqtsrcOZLQEDGFXO9135-38-38 13:16:00 Test Item Value Reference Range Interpretation Comments RBC (test code = RBC) 5.10 4.70-6.10 [facility] Syst[id number] 13:16:00 Test Item Value Reference Range Interpretation Comments Hgb (test code = Hgb) 15.8 14.0-18.0 [facility] SystemQinpksfCHLMZCZUZA1044-79-54 13:16:00 Test Item Value Reference Range Interpretation Comments Hct (test code = Hct) 45.1 42.0-54.0 [facility] SystemPlwnqdyJVDKGZOIMS1895-63-62 13:16:00 Test Item Value Reference Range Interpretation Comments MCV (test code = MCV) 88.4 80.0-94.0 [facility] SystemCjmjrdaFVGVLGSOFF7119-53-94 13:16:00 Test Item Value Reference Range Interpretation Comments MCH (test code = MCH) 31.0 pg 27.0-31.0 [facility] SystemWzgfuajGBQUTSTCTB1734-35-63 13:16:00 Test Item Value Reference Range Interpretation Comments MCHC (test code = MCHC) 35.1 32.0-36.0 [facility] SystemQelhcngAIWNMEYCNN9918-86-91 13:16:00 Test Item Value Reference Range Interpretation Comments RDW (test code = RDW) 13.1 11.5-14.5 [facility] SystemQajewwaIUMWASIFWW0817-16-79 13:16:00 Test Item Value Reference Range Interpretation Comments Platelet (test code = Platelet) 216 133-450 [facility] SystemYybsnvcBASQQFLMQD8521-91-90 13:16:00 Test Item Value Reference Range Interpretation Comments MPV (test code = MPV) 8.5 7.4-10.4 [facility] SystemIhkhylsNNIBVLIBCD1340-68-09 13:16:00 Test Item Value Reference Range Interpretation Comments Segs (test code = Segs) 81.7 45.0-75.0 [facility] SystemFekfvwtXNVCVGNPJX8550-69-80 13:16:00 Test Item Value Reference Range Interpretation Comments Lymphocytes (test code = Lymphocytes) 14.7 20.0-40.0 [facility] SystemNitcaptEBMZNOSTKO4104-50-28 13:16:00 Test Item Value Reference Range Interpretation Comments Monocytes (test code = Monocytes) 3.2 2.0-12.0 [facility] SystemRmdlmeoKKWUBODFMS8780-23-65 13:16:00 Test Item Value Reference Range Interpretation Comments Eosinophils (test code = 0.1 See_Comment [A utomated message] The Eosinophils) system which ge nerated this result tra nsmitted reference range : <=4.0. The reference r wilmer was not used to int erpret this result as normal/abnormal . [facility] SystemJkgxbxxVNIGLWYLLO9084-80-05 13:16:00 Test Item Value Reference Range Interpretation Comments Basophils (test code = 0.3 See_Comment [Aut omated message] The Basophils) system which ge nerated this result tra nsmitted reference range : <=1.0. The reference r wilmer was not used to int erpret this result as normal/abnormal . [facility] SystemZpseitkFZZSFYYLYU6819-60-22 13:16:00 Test Item Value Reference Range Interpretation Comments Neutrophils # (test code = Neutrophils 4.8 1.5-8.1 #) [facility] SystemMnrxofaIGVGGXJBVT9759-47-76 13:16:00 Test Item Value Reference Range Interpretation Comments Lymphocytes # (test code = Lymphocytes 0.9 1.0-5.5 #) [facility] SystemPuuxywvTRGMXGDZGX1799-20-87 13:16:00 Test Item Value Reference Range Interpretation Comments Monocytes # (test code 0.2 See_Comment [Aut omated message] The = Monocytes #) system which generated this result tra nsmitted reference range : <=0.8. The reference r wilmer was not used to int erpret this result as normal/abnormal . [facility] [place]2019-09-03 13:16:00 Test Item Value Reference Range Interpretation Comments Bili Total (test code = Bili Total) 0.3 0.2-1.3 [facility] [place]2019-09-03 13:16:00 Test Item Value Reference Range Interpretation Comments eGFR (test code = eGFR) 68 [facility] SystemOfdcpezDUFNAVYBFN5916-14-34 13:16:00 Test Item Value Reference Range Interpretation Comments WBC (test code = WBC) 5.9 3.7-10.4 [facility] SystemNbnihylDPKDLEOKVA0856-89-82 13:16:00 Test Item Value Reference Range Interpretation Comments RBC (test code = RBC) 5.10 4.70-6.10 [facility] SystemOyflywkELJWWKQDKI0052-04-93 13:16:00 Test Item Value Reference Range Interpretation Comments Hgb (test code = Hgb) 15.8 14.0-18.0 [facility] SystemQbboibsYJXATAZABZ6785-98-08 13:16:00 Test Item Value Reference Range Interpretation Comments Hct (test code = Hct) 45.1 42.0-54.0 [facility] SystemUdfscghURXKDOMQRA5521-33-34 13:16:00 Test Item Value Reference Range Interpretation Comments MCV (test code = MCV) 88.4 80.0-94.0 [facility] SystemAmsmdctUYVYCNVCWG0653-62-19 13:16:00 Test Item Value Reference Range Interpretation Comments MCH (test code = MCH) 31.0 pg 27.0-31.0 [facility] SystemAbocxnvIBHIYJUHVN5500-26-67 13:16:00 Test Item Value Reference Range Interpretation Comments MCHC (test code = MCHC) 35.1 32.0-36.0 [facility] SystemJzwhkipWNVVUANOJV8988-90-72 13:16:00 Test Item Value Reference Range Interpretation Comments RDW (test code = RDW) 13.1 11.5-14.5 [facility] SystemZzmanusYWWBXYVVIX7550-65-85 13:16:00 Test Item Value Reference Range Interpretation Comments Platelet (test code = Platelet) 216 133-450 [facility] SystemTnajrkpZSDQWRMPCU5279-96-64 13:16:00 Test Item Value Reference Range Interpretation Comments MPV (test code = MPV) 8.5 7.4-10.4 [facility] SystemRrtuyxgGJGYKZUEXC5518-41-61 13:16:00 Test Item Value Reference Range Interpretation Comments Segs (test code = Segs) 81.7 45.0-75.0 [facility] SystemCebqhabZHCFFTLMTK6412-44-56 13:16:00 Test Item Value Reference Range Interpretation Comments Lymphocytes (test code = Lymphocytes) 14.7 20.0-40.0 [facility] SystemIdpvmzoUQXIJHMRBA0755-13-95 13:16:00 Test Item Value Reference Range Interpretation Comments Monocytes (test code = Monocytes) 3.2 2.0-12.0 [facility] SystemArkbnrcJRRFCSHRJA4978-35-26 13:16:00 Test Item Value Reference Range Interpretation Comments Eosinophils (test code = 0.1 See_Comment [A utomated message] The Eosinophils) system which ge nerated this result tra nsmitted reference range : <=4.0. The reference r wilmer was not used to int erpret this result as normal/abnormal . [facility] SystemBmuujeoVZDDAEQTNY0333-70-21 13:16:00 Test Item Value Reference Range Interpretation Comments Basophils (test code = 0.3 See_Comment [Aut omated message] The Basophils) system which ge nerated this result tra nsmitted reference range : <=1.0. The reference r wilmer was not used to int erpret this result as normal/abnormal . [facility] SystemTncdeufOFYPYPLUFL1655-01-76 13:16:00 Test Item Value Reference Range Interpretation Comments Neutrophils # (test code = Neutrophils 4.8 1.5-8.1 #) [facility] SystemHoogdbiQHQYICORAX6791-04-96 13:16:00 Test Item Value Reference Range Interpretation Comments Lymphocytes # (test code = Lymphocytes 0.9 1.0-5.5 #) [facility] SystemKvikkaxVJUAWFWAWN3276-84-04 13:16:00 Test Item Value Reference Range Interpretation Comments Monocytes # (test code 0.2 See_Comment [Aut omated message] The = Monocytes #) system which generated this result tra nsmitted reference range : <=0.8. The reference r wilmer was not used to int erpret this result as normal/abnormal . [facility] [place]2019-09-03 13:16:00 Test Item Value Reference Range Interpretation Comments Glucose Lvl (test code = Glucose Lvl) 164 70-99 [facility] [place]2019-09-03 13:16:00 Test Item Value Reference Range Interpretation Comments BUN (test code = BUN) 12 7-22 [facility] [place]2019-09-03 13:16:00 Test Item Value Reference Range Interpretation Comments Creatinine Lvl (test code = Creatinine 1.34 0.50-1.40 Lvl) [facility] [place]2019-09-03 13:16:00 Test Item Value Reference Range Interpretation Comments Sodium Lvl (test code = Sodium Lvl) 141 135-145 [facility] [place]2019-09-03 13:16:00 Test Item Value Reference Range Interpretation Comments Potassium Lvl (test code = Potassium 4.7 3.5-5.1 Lvl) [facility] [place]2019-09-03 13:16:00 Test Item Value Reference Range Interpretation Comments Chloride Lvl (test code = Chloride Lvl) 108 95-109 [facility] [place]2019-09-03 13:16:00 Test Item Value Reference Range Interpretation Comments CO2 (test code = CO2) 27 24-32 [facility] [place]2019-09-03 13:16:00 Test Item Value Reference Range Interpretation Comments AGAP (test code = AGAP) 10.7 10.0-20.0 [facility] [place]2019-09-03 13:16:00 Test Item Value Reference Range Interpretation Comments Calcium Lvl (test code = Calcium Lvl) 8.7 8.5-10.5 [facility] [place]2019-09-03 13:16:00 Test Item Value Reference Range Interpretation Comments B/C Ratio (test code = B/C Ratio) 9 1 6-25 [facility] [place]2019-09-03 13:16:00 Test Item Value Reference Range Interpretation Comments Total Protein (test code = Total 8.1 6.4-8.4 Protein) [facility] [place]2019-09-03 13:16:00 Test Item Value Reference Range Interpretation Comments Albumin Lvl (test code = Albumin Lvl) 4.0 3.5-5.0 [facility] [place]2019-09-03 13:16:00 Test Item Value Reference Range Interpretation Comments Globulin (test code = Globulin) 4.1 2.7-4.2 [facility] [place]2019-09-03 13:16:00 Test Item Value Reference Range Interpretation Comments A/G Ratio (test code = A/G Ratio) 1.0 1 0.7-1.6 [facility] [place]2019-09-03 13:16:00 Test Item Value Reference Range Interpretation Comments ALT (test code = ALT) 39 See_Comment [Auto mated message] The system which ge nerated this result transmit loree reference range : <=65. The reference range was not used to interpr et this result as anand l/abnormal. [facility] [place]2019-09-03 06:12:00 Test Item Value Reference Range Interpretation Comments Lactic Acid Lvl (test code = Lactic 1.4 0.5-2.2 Acid Lvl) [facility] [place]2019-09-03 06:12:00 Test Item Value Reference Range Interpretation Comments Lactic Acid Lvl (test code = Lactic 1.4 0.5-2.2 Acid Lvl) [facility] AND [id number] 03:47:00 Test Item Value Reference Range Interpretation Comments UA Color (test code = Yellow *NA*(07/20/19 UA Color) 10:47 PM) [facility] AND [id number] 03:47:00 Test Item Value Reference Range Interpretation Comments UA Turbidity (test code Marked *ABN*(07/20/19 = UA Turbidity) 10:47 PM) [facility] AND [id number] 03:47:00 Test Item Value Reference Range Interpretation Comments UA Spec Grav (test code = UA Spec 1.012 1 Grav) [facility] AND [id number] 03:47:00 Test Item Value Reference Range Interpretation Comments UA pH (test code = UA pH) 7.0 1 5.0-8.0 [facility] AND [id number] 03:47:00 Test Item Value Reference Range Interpretation Comments UA Protein (test code = UA Negative mg/dL Protein) [facility] AND [id number] 03:47:00 Test Item Value Reference Range Interpretation Comments UA Glucose (test code = UA Negative mg/dL Glucose) [facility] AND [id number] 03:47:00 Test Item Value Reference Range Interpretation Comments UA Ketones (test code = UA Negative mg/dL Ketones) [facility] AND [id number] 03:47:00 Test Item Value Reference Range Interpretation Comments UA Bili (test code = Negative *NA*(07/20/19 UA Bili) 10:47 PM) [facility] AND [id number] 03:47:00 Test Item Value Reference Range Interpretation Comments UA Blood (test code = Small *ABN*(07/20/19 UA Blood) 10:47 PM) [facility] AND [id number] 03:47:00 Test Item Value Reference Range Interpretation Comments UA Nitrite (test code Negative (07/20/19 10:47 = UA Nitrite) PM) [facility] AND [id number] 03:47:00 Test Item Value Reference Range Interpretation Comments UA Leuk Est (test Negative (07/20/19 10:47 code = UA Leuk Est) PM) [facility] AND [id number] 03:47:00 Test Item Value Reference Range Interpretation Comments UA Sq Epi (test code = UA Sq Occasional /LPF Epi) [facility] AND [id number] 03:47:00 Test Item Value Reference Range Interpretation Comments UA RBC (test code = 5 See_Comment [Automa loree message] The UA RBC) system which ge nerated this result transmit loree reference range : <=2. The reference range was not used to interpr et this result as anand l/abnormal. [facility] AND [id number] 03:47:00 Test Item Value Reference Range Interpretation Comments UA Mucus (test code = UA Mucus) Few /LPF [facility] AND [id number] 03:47:00 Test Item Value Reference Range Interpretation Comments UA Amorph Ela (test code = UA Few /HPF Amorph Ela) [facility] AND [id number] 03:47:00 Test Item Value Reference Range Interpretation Comments UA Urobilinogen (test code = UA <=1.0 mg/dL 0.1-1.0 Urobilinogen) [facility] AND [id number] 03:47:00 Test Item Value Reference Range Interpretation Comments UA Color (test code = Yellow *NA*(07/20/19 UA Color) 10:47 PM) [facility] AND [id number] 03:47:00 Test Item Value Reference Range Interpretation Comments UA Turbidity (test code Marked *ABN*(07/20/19 = UA Turbidity) 10:47 PM) [facility] AND [id number] 03:47:00 Test Item Value Reference Range Interpretation Comments UA Spec Grav (test code = UA Spec 1.012 1 Grav) [facility] AND [id number] 03:47:00 Test Item Value Reference Range Interpretation Comments UA pH (test code = UA pH) 7.0 1 5.0-8.0 [facility] AND [id number] 03:47:00 Test Item Value Reference Range Interpretation Comments UA Protein (test code = UA Negative mg/dL Protein) [facility] AND [id number] 03:47:00 Test Item Value Reference Range Interpretation Comments UA Glucose (test code = UA Negative mg/dL Glucose) [facility] AND [id number] 03:47:00 Test Item Value Reference Range Interpretation Comments UA Ketones (test code = UA Negative mg/dL Ketones) [facility] AND [id number] 03:47:00 Test Item Value Reference Range Interpretation Comments UA Bili (test code = Negative *NA*(07/20/19 UA Bili) 10:47 PM) [facility] AND [id number] 03:47:00 Test Item Value Reference Range Interpretation Comments UA Blood (test code = Small *ABN*(07/20/19 UA Blood) 10:47 PM) [facility] AND [id number] 03:47:00 Test Item Value Reference Range Interpretation Comments UA Nitrite (test code Negative (07/20/19 10:47 = UA Nitrite) PM) [facility] AND [id number] 03:47:00 Test Item Value Reference Range Interpretation Comments UA Leuk Est (test Negative (07/20/19 10:47 code = UA Leuk Est) PM) [facility] AND [id number] 03:47:00 Test Item Value Reference Range Interpretation Comments UA Sq Epi (test code = UA Sq Occasional /LPF Epi) [facility] AND [id number] 03:47:00 Test Item Value Reference Range Interpretation Comments UA RBC (test code = 5 See_Comment [Automa loree message] The UA RBC) system which ge nerated this result transmit loree reference range : <=2. The reference range was not used to interpr et this result as anand l/abnormal. [facility] AND [id number] 03:47:00 Test Item Value Reference Range Interpretation Comments UA Mucus (test code = UA Mucus) Few /LPF [facility] AND [id number] 03:47:00 Test Item Value Reference Range Interpretation Comments UA Amorph Ela (test code = UA Few /HPF Amorph Ela) [facility]2019-09-03 03:47:00 Test Item Value Reference Range Interpretation Comments UA Urobilinogen (test code = UA <=1.0 mg/dL 0.1-1.0 Urobilinogen) [facility] [place]2019-09-03 03:31:00 Test Item Value Reference Range Interpretation Comments Glucose Lvl (test code = Glucose Lvl) 104 70-99 [facility] [place]2019-09-03 03:31:00 Test Item Value Reference Range Interpretation Comments BUN (test code = BUN) 11 7-22 [facility] [place]2019-09-03 03:31:00 Test Item Value Reference Range Interpretation Comments Creatinine Lvl (test code = Creatinine 1.44 0.50-1.40 Lvl) [facility] [place]2019-09-03 03:31:00 Test Item Value Reference Range Interpretation Comments Sodium Lvl (test code = Sodium Lvl) 137 135-145 [facility] [place]2019-09-03 03:31:00 Test Item Value Reference Range Interpretation Comments Potassium Lvl (test code = Potassium 4.6 3.5-5.1 Lvl) [facility] [place]2019-09-03 03:31:00 Test Item Value Reference Range Interpretation Comments Chloride Lvl (test code = Chloride Lvl) 107 95-109 [facility] [place]2019-09-03 03:31:00 Test Item Value Reference Range Interpretation Comments CO2 (test code = CO2) 25 24-32 [facility] [place]2019-09-03 03:31:00 Test Item Value Reference Range Interpretation Comments AGAP (test code = AGAP) 9.6 10.0-20.0 [facility] [place]2019-09-03 03:31:00 Test Item Value Reference Range Interpretation Comments Calcium Lvl (test code = Calcium Lvl) 8.9 8.5-10.5 [facility] [place]2019-09-03 03:31:00 Test Item Value Reference Range Interpretation Comments eGFR (test code = eGFR) 62 [facility] [id number] 03:31:00 Test Item Value Reference Range Interpretation Comments WBC (test code = WBC) 6.1 3.7-10.4 [facility] [id number] 03:31:00 Test Item Value Reference Range Interpretation Comments RBC (test code = RBC) 5.09 4.70-6.10 [facility] Syst[id number] 03:31:00 Test Item Value Reference Range Interpretation Comments Hgb (test code = Hgb) 15.5 14.0-18.0 [facility] [id number] 03:31:00 Test Item Value Reference Range Interpretation Comments Hct (test code = Hct) 46.4 42.0-54.0 [facility] [id number] 03:31:00 Test Item Value Reference Range Interpretation Comments MCV (test code = MCV) 91.1 80.0-94.0 [facility] Syst[id number] 03:31:00 Test Item Value Reference Range Interpretation Comments MCH (test code = MCH) 30.5 pg 27.0-31.0 [facility] [id number] 03:31:00 Test Item Value Reference Range Interpretation Comments MCHC (test code = MCHC) 33.5 32.0-36.0 [facility] Syst[id number] 03:31:00 Test Item Value Reference Range Interpretation Comments RDW (test code = RDW) 13.2 11.5-14.5 [facility] Syst[id number] 03:31:00 Test Item Value Reference Range Interpretation Comments Platelet (test code = Platelet) 174 133-450 [facility] [id number] 03:31:00 Test Item Value Reference Range Interpretation Comments MPV (test code = MPV) 8.9 7.4-10.4 [facility] SystemHfxhzzsEREMRCOFLO6919-20-03 03:31:00 Test Item Value Reference Range Interpretation Comments Segs (test code = Segs) 68.9 45.0-75.0 [facility] SystemQwwawibFVDMGDOOAK5348-76-27 03:31:00 Test Item Value Reference Range Interpretation Comments Lymphocytes (test code = Lymphocytes) 18.1 20.0-40.0 [facility] Syst[id number] 03:31:00 Test Item Value Reference Range Interpretation Comments Monocytes (test code = Monocytes) 11.4 2.0-12.0 [facility] [id number] 03:31:00 Test Item Value Reference Range Interpretation Comments Eosinophils (test code = 1.0 See_Comment [A utomated message] The Eosinophils) system which ge nerated this result tra nsmitted reference range : <=4.0. The reference r wilmer was not used to int erpret this result as normal/abnormal . [facility] Syst[id number] 03:31:00 Test Item Value Reference Range Interpretation Comments Basophils (test code = 0.6 See_Comment [Aut omated message] The Basophils) system which ge nerated this result tra nsmitted reference range : <=1.0. The reference r wilmer was not used to int erpret this result as normal/abnormal . [facility] SystemHgxofmtUAJWNUWGIQ9272-54-23 03:31:00 Test Item Value Reference Range Interpretation Comments Neutrophils # (test code = Neutrophils 4.2 1.5-8.1 #) [facility] SystemFogepfgQJDKUOKALJ8710-82-03 03:31:00 Test Item Value Reference Range Interpretation Comments Lymphocytes # (test code = Lymphocytes 1.1 1.0-5.5 #) [facility] [id number] 03:31:00 Test Item Value Reference Range Interpretation Comments Monocytes # (test code 0.7 See_Comment [Aut omated message] The = Monocytes #) system which generated this result tra nsmitted reference range : <=0.8. The reference r wilmer was not used to int erpret this result as normal/abnormal . [facility] [id number] 03:31:00 Test Item Value Reference Range Interpretation Comments Eosinophils # (test code 0.1 See_Comment [A utomated message] The = Eosinophils #) system whic h generated this result tra nsmitted reference range : <=0.5. The reference r wilmer was not used to int erpret this result as normal/abnormal . [place] [id number] 03:31:00 Test Item Value Reference Range Interpretation Comments Grp A Strep Scr (test Negative (07/20/19 10:31 code = Grp A Strep PM) Scr) [facility] [place]2019-09-03 03:31:00 Test Item Value Reference Range Interpretation Comments Glucose Lvl (test code = Glucose Lvl) 104 70-99 [facility] [place]2019-09-03 03:31:00 Test Item Value Reference Range Interpretation Comments BUN (test code = BUN) 11 7-22 [facility] [place]2019-09-03 03:31:00 Test Item Value Reference Range Interpretation Comments Creatinine Lvl (test code = Creatinine 1.44 0.50-1.40 Lvl) [facility] [place]2019-09-03 03:31:00 Test Item Value Reference Range Interpretation Comments Sodium Lvl (test code = Sodium Lvl) 137 135-145 [place] [id number] 03:31:00 Test Item Value Reference Range Interpretation Comments Potassium Lvl (test code = Potassium 4.6 3.5-5.1 Lvl) [facility]2019-09-03 03:31:00 Test Item Value Reference Range Interpretation Comments Chloride Lvl (test code = Chloride Lvl) 107 95-109 [facility]2019-09-03 03:31:00 Test Item Value Reference Range Interpretation Comments CO2 (test code = CO2) 25 24-32 [facility]2019-09-03 03:31:00 Test Item Value Reference Range Interpretation Comments AGAP (test code = AGAP) 9.6 10.0-20.0 [facility]2019-09-03 03:31:00 Test Item Value Reference Range Interpretation Comments Calcium Lvl (test code = Calcium Lvl) 8.9 8.5-10.5 [facility]2019-09-03 03:31:00 Test Item Value Reference Range Interpretation Comments eGFR (test code = eGFR) 62 [id number] 03:31:00 Test Item Value Reference Range Interpretation Comments WBC (test code = WBC) 6.1 3.7-10.4 [place] 361559-09-03 03:31:00 Test Item Value Reference Range Interpretation Comments RBC (test code = RBC) 5.09 4.70-6.10 [id number] 03:31:00 Test Item Value Reference Range Interpretation Comments Hgb (test code = Hgb) 15.5 14.0-18.0 [facility] Syst[id number] 03:31:00 Test Item Value Reference Range Interpretation Comments Hct (test code = Hct) 46.4 42.0-54.0 [facility] [id number] 03:31:00 Test Item Value Reference Range Interpretation Comments MCV (test code = MCV) 91.1 80.0-94.0 [facility] Sy[id number] 03:31:00 Test Item Value Reference Range Interpretation Comments MCH (test code = MCH) 30.5 pg 27.0-31.0 [facility] Syst[id number] 03:31:00 Test Item Value Reference Range Interpretation Comments MCHC (test code = MCHC) 33.5 32.0-36.0 [facility] [id number] 03:31:00 Test Item Value Reference Range Interpretation Comments RDW (test code = RDW) 13.2 11.5-14.5 [facility] Sy[id number] 03:31:00 Test Item Value Reference Range Interpretation Comments Platelet (test code = Platelet) 174 133-450 [facility] SystemBdviyazKWTXMOSSMU1104-03-22 03:31:00 Test Item Value Reference Range Interpretation Comments MPV (test code = MPV) 8.9 7.4-10.4 [facility] Syst[id number] 03:31:00 Test Item Value Reference Range Interpretation Comments Segs (test code = Segs) 68.9 45.0-75.0 [facility] Syst[id number] 03:31:00 Test Item Value Reference Range Interpretation Comments Lymphocytes (test code = Lymphocytes) 18.1 20.0-40.0 [facility] Syst[id number] 03:31:00 Test Item Value Reference Range Interpretation Comments Monocytes (test code = Monocytes) 11.4 2.0-12.0 [facility] S[id number] 03:31:00 Test Item Value Reference Range Interpretation Comments Eosinophils (test code = 1.0 See_Comment [A utomated message] The Eosinophils) system which ge nerated this result tra nsmitted reference range : <=4.0. The reference r wilmer was not used to int erpret this result as normal/abnormal . [facility] Syst[id number] 03:31:00 Test Item Value Reference Range Interpretation Comments Basophils (test code = 0.6 See_Comment [Aut omated message] The Basophils) system which ge nerated this result tra nsmitted reference range : <=1.0. The reference r wilmer was not used to int erpret this result as normal/abnormal . [facility] S[id number] 03:31:00 Test Item Value Reference Range Interpretation Comments Neutrophils # (test code = Neutrophils 4.2 1.5-8.1 #) [facility] [id number] 03:31:00 Test Item Value Reference Range Interpretation Comments Lymphocytes # (test code = Lymphocytes 1.1 1.0-5.5 #) [facility] [id number] 03:31:00 Test Item Value Reference Range Interpretation Comments Monocytes # (test code 0.7 See_Comment [Aut omated message] The = Monocytes #) system which generated this result tra nsmitted reference range : <=0.8. The reference r wilmer was not used to int erpret this result as normal/abnormal . [facility] [id number] 03:31:00 Test Item Value Reference Range Interpretation Comments Eosinophils # (test code 0.1 See_Comment [A utomated message] The = Eosinophils #) system whic h generated this result tra nsmitted reference range : <=0.5. The reference r wilmer was not used to int erpret this result as normal/abnormal . [place] [id number] 03:31:00 Test Item Value Reference Range Interpretation Comments Grp A Strep Scr (test Negative (07/20/19 10:31 code = Grp A Strep PM) Scr) [facility] W Auto Differential panel - [id number] 09:50:00 Test Item Value Reference Range Interpretation Comments WBC (test code = WBC) 6.25 x10*3/?L 4.23-9.07 RBC (test code = RBC) 5.66 10*12/L 4.63-6.08 hemoglobin (test code = 16.90 g/dL 13.70-17.50 hemoglobin) hematocrit (test code = 49.5 % 40.1-51.0 hematocrit) MCV (test code = MCV) 87.5 fL 80.0-100.0 MCH (test code = MCH) 29.9 pg 25.7-32.2 MCHC (test code = MCHC) 34.1 g/dL 32.3-36.5 RDW-SD (test code = RDW-SD) 42.8 fL 35.1-43.9 platelet count (test code = 233.0 k/uL 163.0-337.0 platelet count) MPV (test code = MPV) 11.0 fL 7.5-11.5 neut% (test code = neut%) 56.3 % 34.0-67.9 lymph% (test code = lymph%) 28.5 % 21.8-53.1 mon% (test code = mon%) 12.0 % 5.3-12.2 eos% (test code = eos%) 2.6 % 0.8-7.0 baso% (test code = baso%) 0.6 % 0.2-1.2 neut# (test code = neut#) 3.5 x10*3/?L 1.8-5.4 lymph# (test code = lymph#) 1.8 x10*3/?L 1.3-3.6 mon# (test code = mon#) 0.8 x10*3/?L 0.3-0.8 eos# (test code = eos#) 0.16 x10*3/?L 0.04-0.54 baso# (test code = baso#) 0.04 x10*3/?L 0.01-0.08 [facility] W Auto Differential panel - [id number] 09:50:00 Test Item Value Reference Range Interpretation Comments WBC (test code = WBC) 6.25 x10*3/?L 4.23-9.07 RBC (test code = RBC) 5.66 10*12/L 4.63-6.08 hemoglobin (test code = 16.90 g/dL 13.70-17.50 hemoglobin) hematocrit (test code = 49.5 % 40.1-51.0 hematocrit) MCV (test code = MCV) 87.5 fL 80.0-100.0 MCH (test code = MCH) 29.9 pg 25.7-32.2 MCHC (test code = MCHC) 34.1 g/dL 32.3-36.5 RDW-SD (test code = RDW-SD) 42.8 fL 35.1-43.9 platelet count (test code = 233.0 k/uL 163.0-337.0 platelet count) MPV (test code = MPV) 11.0 fL 7.5-11.5 neut% (test code = neut%) 56.3 % 34.0-67.9 lymph% (test code = lymph%) 28.5 % 21.8-53.1 mon% (test code = mon%) 12.0 % 5.3-12.2 eos% (test code = eos%) 2.6 % 0.8-7.0 baso% (test code = baso%) 0.6 % 0.2-1.2 neut# (test code = neut#) 3.5 x10*3/?L 1.8-5.4 lymph# (test code = lymph#) 1.8 x10*3/?L 1.3-3.6 mon# (test code = mon#) 0.8 x10*3/?L 0.3-0.8 eos# (test code = eos#) 0.16 x10*3/?L 0.04-0.54 baso# (test code = baso#) 0.04 x10*3/?L 0.01-0.08 [facility] - Serum or Plasma 2019-02-27 09:16:00 Test Item Value Reference Range Interpretation Comments ALT (test code = ALT) 33 U/L 0-55 AST (test code = AST) 23 U/L 5-34 BUN (test code = BUN) 14.5 mg/dL 8.9-20.6 alk phos (test code = alk phos) 54 unit/L 40-150 glucose (test code = glucose) 109 mg/dL 70-99 H albumin (test code = albumin) 4.3 g/dL 3.5-5.0 creatinine (test code = 1.08 mg/dL 0.72-1.25 creatinine) eGFR non- (test >60 code = eGFR non-) total bilirubin (test code = 0.5 mg/dL 0.2-1.2 total bilirubin) eGFR - (test >60 code = eGFR - ) sodium (test code = sodium) 138 mEq/L 136-145 potassium (test code = potassium) 4.2 mEq/L 3.5-5.1 chloride (test code = chloride) 104 mmol/L 98-107 total protein (test code = total 7.1 g/dL 6.4-8.3 protein) calcium (test code = calcium) 9.7 mg/dL 8.6-10.4 CO2 (test code = CO2) 22.0 mmol/L 22.0-29.0 anion gap (test code = anion gap) 12 [facility] - Serum or Plasma 2019-02-27 09:16:00 Test Item Value Reference Range Interpretation Comments ALT (test code = ALT) 33 U/L 0-55 AST (test code = AST) 23 U/L 5-34 BUN (test code = BUN) 14.5 mg/dL 8.9-20.6 alk phos (test code = alk phos) 54 unit/L 40-150 glucose (test code = glucose) 109 mg/dL 70-99 H albumin (test code = albumin) 4.3 g/dL 3.5-5.0 creatinine (test code = 1.08 mg/dL 0.72-1.25 creatinine) eGFR non- (test >60 code = eGFR non-) total bilirubin (test code = 0.5 mg/dL 0.2-1.2 total bilirubin) eGFR - (test >60 code = eGFR - ) sodium (test code = sodium) 138 mEq/L 136-145 potassium (test code = potassium) 4.2 mEq/L 3.5-5.1 chloride (test code = chloride) 104 mmol/L 98-107 total protein (test code = total 7.1 g/dL 6.4-8.3 protein) calcium (test code = calcium) 9.7 mg/dL 8.6-10.4 CO2 (test code = CO2) 22.0 mmol/L 22.0-29.0 anion gap (test code = anion gap) 12 [facility] - Serum or [id number] 19:57:00 Test Item Value Reference Range Interpretation Comments HDL (test code = HDL) 31 mg/dL 40-60 L triglyceride (test code = 135 mg/dL 0-149 triglyceride) VLDL calc. (test code = VLDL calc.) 27 mg/dL cholesterol/HDL ratio (test code = 5.4 mg/dL cholesterol/HDL ratio) non-HDL cholesterol calc. (test 135 mg/dL 0-160 code = non-HDL cholesterol calc.) cholesterol (test code = 166 mg/dL 0-199 cholesterol) Cholesterol in LDL [Mass/volume] in 108 mg/dL 0-130 Serum or Plasma (test code = 2089-1) [facility] - Serum or [id number] 19:57:00 Test Item Value Reference Range Interpretation Comments HDL (test code = HDL) 31 mg/dL 40-60 L triglyceride (test code = 135 mg/dL 0-149 triglyceride) VLDL calc. (test code = VLDL calc.) 27 mg/dL cholesterol/HDL ratio (test code = 5.4 mg/dL cholesterol/HDL ratio) non-HDL cholesterol calc. (test 135 mg/dL 0-160 code = non-HDL cholesterol calc.) cholesterol (test code = 166 mg/dL 0-199 cholesterol) Cholesterol in LDL [Mass/volume] in 108 mg/dL 0-130 Serum or Plasma (test code = 2089-1) [facility] [Units/volume] in Serum or [id number] 19:53:00 Test Item Value Reference Range Interpretation Comments TSH (test code = TSH) 2.647 uIU/mL 0.350-4.940 [facility]tkatkyz70-Cnzuhvquhhsgxr D2+25-Hydroxyvitamin D3 [Mass/volume] in Serum or [id number] 19:53:00 Test Item Value Reference Range Interpretation Comments vitamin D 25OH (test code = 31.4 NG/mL 30.0-96.0 vitamin D 25OH) [facility] [Units/volume] in Serum or [id number] 19:53:00 Test Item Value Reference Range Interpretation Comments TSH (test code = TSH) 2.647 uIU/mL 0.350-4.940 [facility]Xodfipcj82-Xbsqylnrsgbeok D2+25-Hydroxyvitamin D3 [Mass/volume] in Serum or [id number] 19:53:00 Test Item Value Reference Range Interpretation Comments vitamin D 25OH (test code = 31.4 NG/mL 30.0-96.0 vitamin D 25OH) [facility] A[facility]/Hemoglobin.total in [id number] 17:55:00 Test Item Value Reference Range Interpretation Comments Hemoglobin A1c/Hemoglobin.total in 5.7 % 1.0-5.7 Blood (test code = 4548-4) average blood glucose (test code = 117 mg/dL average blood glucose) [facility] A[facility]/Hemoglobin.total in [id number] 17:55:00 Test Item Value Reference Range Interpretation Comments Hemoglobin A1c/Hemoglobin.total in 5.7 % 1.0-5.7 Blood (test code = 4548-4) average blood glucose (test code = 117 mg/dL average blood glucose) [facility] macro (dipstick) panel - [id number] 09:15:00 Test Item Value Reference Range Interpretation Comments Color Color (test code = Color light yellow Color) Color Appearance (test code = clear Color Appearance) Color Glucose (test code = Color negative Glucose) Color Bilirubin (test code = negative Color Bilirubin) Color Ketones (test code = Color negative Ketones) Color Specific [place] (test 1.025 code = Color Specific [place]) Color Blood (test code = Color trace Blood) Color PH (test code = Color PH) 6.0 Color Protein (test code = Color negative Protein) Color Urobilinogen (test code = 0.2 Color Urobilinogen) Color Nitrites (test code = negative Color Nitrites) Color Leukocytes (test code = negative Color Leukocytes) [facility] macro (dipstick) panel - [id number] 09:15:00 Test Item Value Reference Range Interpretation Comments Color Color (test code = Color light yellow Color) Color Appearance (test code = clear Color Appearance) Color Glucose (test code = Color negative Glucose) Color Bilirubin (test code = negative Color Bilirubin) Color Ketones (test code = Color negative Ketones) Color Specific [place] (test 1.025 code = Color Specific [place]) Color Blood (test code = Color trace Blood) Color PH (test code = Color PH) 6.0 Color Protein (test code = Color negative Protein) Color Urobilinogen (test code = 0.2 Color Urobilinogen) Color Nitrites (test code = negative Color Nitrites) Color Leukocytes (test code = negative Color Leukocytes) [facility]
[2022-08-19] MEDS ORDERED: KETOROLAC 30 MG/ML INJ ONE (18:32)
--- NOTE | 2022-08-19 19:04 | RAD REPORT ---
EXAM DESCRIPTION: RAD - Hand Left 3 View - 08/19/2022 6:43 pm CLINICAL HISTORY: blunt trauma Trauma, pain COMPARISON: No comparisons FINDINGS: Moderate soft tissue swelling is seen along the dorsum of the hand. No fracture, dislocati on or aggressive marrow pattern.
--- NOTE | 2022-08-19 19:04 | RAD REPORT ---
EXAM DESCRIPTION: RAD - Wrist Left 3 View - 08/19/2022 6:43 pm CLINICAL HISTORY: baseball vs wrist Pain COMPARISON: No comparisons FINDINGS: No fracture or dislocation seen. Soft tissue swelling is seen along the dorsum of the wri st.
--- NOTE | 2022-08-19 19:48 | EDPHYS ---
Physician Documentation [facility] Name: Ruba Sparks Age: 37 yrs Sex: Male : 1985 Arrival Date: 08/19/2022 Time: 17:51 Bed 25 Private MD: ED Physician Morgan Meneses HPI: 08/19 19:45 This 37 yrs old Male presents to ER via Ambulatory with complaints of Hand Injury. jmm 19:45 The patient or guardian reports injury, pain. Onset: The symptoms/episode jmm began/occurred acutely, just prior to arrival. Modifying factors: The symptoms are alleviated by nothing, the symptoms are aggravated by nothing. This is a 37-year-old male with history of hypertension and depression the presents emerged part with complaints of left hand pain. Patient states he was hit in the head with a baseball while watching a baseball game. This occurred yesterday. Patient awoke today with some increased swelling and stiffness in the hand. Historical: - Allergies: 18:16 No Known Allergies; bm7 - Home Meds: 18:18 amitriptyline 25 mg Oral tab 1 tab once daily [Active]; ibersartan [Active]; sertraline bm7 100 mg oral tab 1 tab once daily [Active]; atenolol 50 mg Oral tab 1 tab once daily [Active]; - PMHx: 18:18 Hypertensive disorder; Depressive disorder; bm7 - PSHx: 18:18 None; bm7 - Immunization history:: Adult Immunizations up to date. - Social history:: Smoking status: Patient denies any tobacco usage or history of. ROS: 19:45 Constitutional: Negative for fever, chills, and weight loss, Cardiovascular: Negative jmm for chest pain, palpitations, and edema, Respiratory: Negative for shortness of breath, cough, wheezing, and pleuritic chest pain. 19:45 MS/extremity: Positive for injury or acute deformity, pain. 19:45 All other systems are negative. Exam: 19:45 Constitutional: This is a well developed, well nourished patient who is awake, alert, jmm and in no acute distress. Head/Face: atraumatic. Eyes: EOMI, no conjunctival erythema appreciated ENT: Moist Mucus Membranes Neck: Trachea midline, Supple Chest/axilla: Normal chest wall appearance and motion. Cardiovascular: Regular rate and rhythm. No edema appreciated Respiratory: Normal respirations, no respiratory distress appreciated Abdomen/GI: Non distended Back: Normal ROM Skin: General appearance color normal 19:45 Musculoskeletal/extremity: ROM: intact in all extremities. 19:45 Musculoskeletal/extremity: Mild swelling noted to the dorsum of the left hand, metacarpals 3 through 5 are tender to palpation, no obvious deformity appreciated, compartments are soft, less than 2-second distal cap refill in all fingers, full radial pulse, neurovascular intact. 19:45 Skin: Appearance: Color: normal in color. 19:45 Neuro: Orientation: is normal, Mentation: is normal, Memory: is normal. 19:45 Psych: Behavior/mood is pleasant, cooperative. Vital Signs: 18:14 BP 128 / 60; Pulse 56; Resp 16; Temp 97.9(TE); Pulse Ox 100% on R/A; Weight 136.08 kg bm7 (R); Height 5 ft. 11 in. (180.34 cm); Pain 8/10; 18:14 Body Mass Index 41.84 (136.08 kg, 180.34 cm) bm7 MDM: 18:30 Patient medically screened. rohan 19:46 Data reviewed: vital signs, nurses notes. Counseling: I had a detailed discussion with janene the patient and/or guardian regarding: the historical points, exam findings, and any diagnostic results supporting the discharge/admit diagnosis, radiology results, the need for outpatient follow up, to return to the emergency department if symptoms worsen or persist or if there are any questions or concerns that arise at home. 08/19 18:19 Order name: Hand Left 3 View XRAY [facility] 08/19 18:19 Order name: Wrist Left (3 View) XRAY [facility] 08/19 19:04 Order name: RAD; Complete Time: 19:06 EDMS 08/19 19:05 Order name: RAD; Complete Time: 19:06 EDMS Administered Medications: 19:01 Drug: Ketorolac 30 mg Route: IM; Site: left deltoid; bm7 20:08 Follow up: Response: No adverse reaction as6 Disposition Summary: 08/19/22 19:47 Discharge Ordered Location: Home [facility] Condition: Stable [facility] Diagnosis - Contusion of left hand [facility] Followup: [facility] - With: Drake Chand MD - When: 2 - 3 days - Reason: Recheck today's complaints, Continuance of care, Re-evaluation by your physician Discharge Instructions: - Discharge Summary Sheet janene - Hand Contusion janene Forms: - Medication Reconciliation Form janene - Thank You Letter janene - Antibiotic Education janene - Prescription Opioid Use janene - Work release form as6 Prescriptions: - Diclofenac Sodium 75 mg Oral Tablet Sustained Release - take 1 tablet by ORAL route 2 times per day; 30 tablet; Refills: 0, Product [facility] Selection Permitted - orphenadrine citrate 100 mg Oral Tablet Sustained Release - take 1 tablet by ORAL route 2 times per day As needed; 20 tablet; Refills: 0, jm Product Selection Permitted Signatures: Dispatcher [employer] Morgan Rosenberg MD MD cha Mickail, Joel, PA PA jmm McCarthy, Brittany, RN RN bm7 Ole Piedra RN as6
--- NOTE | 2022-08-19 19:48 | ER ---
Nurse's Notes [facility] Name: Ruba Sparks Age: 37 yrs Sex: Male : 1985 Arrival Date: 08/19/2022 Time: 17:51 Bed 25 Private MD: Diagnosis: Contusion of left hand Presentation: 08/19 18:14 Chief complaint: Patient states: I was at an [employer] game saturday night and I got hit in bm7 the hand by a line drive foul ball. Chief complaint:. Coronavirus screen: At this time, the client does not indicate any symptoms associated with coronavirus-19. Ebola Screen: No symptoms or risks identified at this time. Initial Sepsis Screen: Does the patient meet any 2 criteria? No. Patient's initial sepsis screen is negative. Does the patient have a suspected source of infection? No. Patient's initial sepsis screen is negative. Risk Assessment: Do you want to hurt yourself or someone else? Patient reports no desire to harm self or others. Onset of symptoms was August 17, 2022. 18:14 Method Of Arrival: Ambulatory bm7 18:14 Acuity: OSMIN 4 bm7 Triage Assessment: 18:18 General: Appears in no apparent distress. uncomfortable, obese, Behavior is calm, bm7 cooperative, appropriate for age. Pain: Complains of pain in left hand. EENT: No deficits noted. No signs and/or symptoms were reported regarding the EENT system. Neuro: No deficits noted. Cardiovascular: No deficits noted. Respiratory: No deficits noted. GI: No deficits noted. No signs and/or symptoms were reported involving the gastrointestinal system. : No deficits noted. No signs and/or symptoms were reported regarding the genitourinary system. Musculoskeletal: Swelling present in left hand Reports pain in left hand. Injury Description: ball hit hand. 18:18 Derm: No deficits noted. No signs and/or symptoms reported regarding the dermatologic bm7 system. Historical: - Allergies: 18:16 No Known Allergies; bm7 - Home Meds: 18:18 amitriptyline 25 mg Oral tab 1 tab once daily [Active]; ibersartan [Active]; sertraline bm7 100 mg oral tab 1 tab once daily [Active]; atenolol 50 mg Oral tab 1 tab once daily [Active]; - PMHx: 18:18 Hypertensive disorder; Depressive disorder; bm7 - PSHx: 18:18 None; bm7 - Immunization history:: Adult Immunizations up to date. - Social history:: Smoking status: Patient denies any tobacco usage or history of. Screenin:26 Abuse screen: Denies threats or abuse. Nutritional screening: No deficits noted. bm7 Tuberculosis screening: No symptoms or risk factors identified. Fall Risk None identified. Assessment: 18:26 Reassessment: No changes from previously documented assessment. bm7 Vital Signs: 18:14 BP 128 / 60; Pulse 56; Resp 16; Temp 97.9(TE); Pulse Ox 100% on R/A; Weight 136.08 kg bm7 (R); Height 5 ft. 11 in. (180.34 cm); Pain 8/10; 18:14 Body Mass Index 41.84 (136.08 kg, 180.34 cm) bm7 ED Course: 17:51 Patient arrived in ED. am2 18:12 Jonathon Glover PA is PHCP[facility] 18:12 Morgan Meneses MD is Attending Physician. [facility] 18:16 Triage completed. bm7 18:18 Arm band placed on right wrist. bm7 18:25 Chante Jackson, NORMA is Primary Nurse. bm7 18:26 No apparent distress. Resting quietly. Awaiting for x-ray. bm7 18:26 Patient has correct armband on for positive identification. Call light in reach. bm7 18:26 Client placed on continuous cardiac and pulse oximetry monitoring. NIBP monitoring bm7 applied. 19:47 Drake Chand MD is Referral Physician. [facility] 20:08 No provider procedures requiring assistance completed. Patient did not have IV access as6 during this emergency room visit. Administered Medications: 19:01 Drug: Ketorolac 30 mg Route: IM; Site: left deltoid; bm7 20:08 Follow up: Response: No adverse reaction as6 Medication: 18:26 VIS not applicable for this client. bm7 Outcome: 19:47 Discharge ordered by . jm 20:08 Discharged to home ambulatory. as6 20:08 Condition: stable 20:08 Discharge instructions given to patient, Instructed on discharge instructions, follow up and referral plans. medication usage, Demonstrated understanding of instructions, follow-up care, medications, Prescriptions given X 2. 20:08 Patient left the ED. as6 Signatures: Jonathon Glover PA PA jmm Moreno, Amanda am2 Chante Jackson, RN RN bm7 Ole Piedra RN RN as6
[2022-08-19 20:20] VITALS: BP 128/60; TEMP 97.9; O2SAT 100
== END 2022-08-19 20:08 | disposition home or self-care (01) ==
LOC: ER 17:46
DX: S60.222A Contusion of left hand, initial encounter (principal); W21.03XA Struck by baseball, initial encounter; I10 Essential (primary) hypertension; F32.A Depression, unspecified; Z79.899 Other long term (current) drug therapy
CPT/HCPCS: 96372; 99283